=== PATIENT | female | born 1970 | race Caucasian/White ===

== ENCOUNTER 2020-04-16 20:44 | Emergency (ER) | payer MEDICAID, SELFPAY ==
--- NOTE | 2020-04-16 22:12 | ECG_ITS ---
Test Reason : CHEST PAIN/DYSPNEA Blood Pressure : / mmHG Vent. Rate : 076 BPM Atrial Rate : 076 BPM P-R Int : 148 ms QRS Dur : 084 ms QT Int : 408 ms P-R-T Axes : 073 000 -02 degrees QTc Int : 459 ms Normal sinus rhythm Normal ECG When compared with ECG of 13-OCT-2019 22:14, No significant change was found Referred By: Generic ED Physician Electronically Signed By:Justin Pena
== END 2020-04-17 00:21 | disposition left against medical advice (07) ==
PROVIDERS: Emergency Provider Emergency Medicine
DX: R07.9 Chest pain, unspecified (principal); R06.02 Shortness of breath
CPT/HCPCS: 93005; 99281; 99283

== ENCOUNTER 2020-07-13 20:16 | Emergency (ER) | payer MEDICAID, SELFPAY ==
--- NOTE | ~2020-07-13 | XR_ITS ---
EXAMINATION: XR CHEST CLINICAL INFORMATION: Shortness of breath COMPARISON: 10/13/2019 TECHNIQUE: Frontal view of the chest was obtained. FINDINGS: No significant abnormality is noted involving the heart, lungs, mediastinum, bony thorax or soft tissues. XR/XR chest 1V IMPRESSION: Unremarkable examination.
[2020-07-13 20:18] VITALS: BP 137/84; PULSE 79; RESP 20; TEMP 36.6; O2SAT 96; BMI 32.5
--- NOTE | 2020-07-13 20:41 | ED.ASTHMA ---
HPI - Asthma General Chief Complaint: Asthma Stated Complaint: asthma Time Seen by Provider: 07/13/20 20:41 Source: patient Limitations: no limitations History of Present Illness HPI Narrative: Patient history of asthma usually L3-4 attacks in a year been having asthma for last 1 month treated with tapering dose of prednisone which she already finished still having shortness of breath coughing mostly dry no fever or chills had COVID test done 2 weeks ago which was negative patient denies any exposure to any allergens, no new pet at home but she has allergies. MD complaint: asthma attack and shortness of breath Onset (ago): week(s) Severity: moderate Context: none known Associated symptoms: dry cough Asthma History: childhood onset Treatments Prior to Arrival: inhaled bronchodilator Related Data Previous Rx's Medication Instructions Recorded albuterol sulfate 2.5 mg INHALATION Q4-6H PRN #180 ml 07/13/20 codeine-guaifenesin 10 ml PO Q6-8H PRN #237 ml 07/13/20 fluticasone propionate [Flovent 2 puff INHALATION BID #12 g 07/13/20 HFA] montelukast [Singulair] 10 mg PO BEDTIME #30 tab 07/13/20 prednisone 40 mg PO DAILY #10 tab 07/13/20 Allergies Allergy/AdvReac Type Severity Reaction Status Date / Time prochlorperazine Allergy Unknown UNKNOWN Unverified 12/27/19 15:51 [From COMPAZINE] ibuprofen [From Motrin] AdvReac Mild STOMACH Unverified 12/27/19 15:51 UPSET Shellfish Allergy Mild SWELLING Uncoded 12/27/19 15:51 Review of Systems Review of Systems: Constitutional : No Weight loss, No Fever, No Chills ENT/Mouth : No sore throat, No Rhinorrhea Eyes: No Eye Pain, No Swelling Cardiovascular : No Chest Pain, no palpitations Respiratory : Dry Cough, No Sputum, + shortness of breath Gastrointestinal : no Nausea, No Vomiting, No Diarrhea, No abdominal Pain, no black stools Genitourinary : No Dysuria, No Urinary Frequency Musculoskeletal : No joint pain, No Myalgias, No Joint Swelling Skin : No Skin Lesions, No rash Neuro : No Weakness, No Numbness, No Dizziness, No Headache Psych : No Anxiety/Panic, No Depression Heme/Lymph: No Bruising, No Lymphadenopathy Endocrine : No Polyuria, No Polydipsia All other systems reviewed and are negative [facility] Past Medical History Medical History Asthma HTN (hypertension) Hypothyroid Migraine Surgical History History of appendectomy History of sleeve gastrectomy Hx of cholecystectomy Social History Social History Advance Directives: No Physical Exam Vital Signs: Vital Signs: Last Vital Signs Temp 97.8 F 07/13/20 20:18 Pulse 69 07/13/20 22:11 Resp 18 07/13/20 22:11 BP 146/81 H 07/13/20 22:11 Pulse Ox 100 07/13/20 22:11 Body Mass Index 32.5 Appearance: Alert. Oriented X3. No acute distress. Eyes: Pupils equal, round and reactive to light. ENT: Pharynx normal. Neck: Normal inspection. Neck supple. CVS: Normal heart rate and rhythm. Pulses normal. Respiratory: No respiratory distress. Frequent dry cough prolonged expiration both sides wheezing present bilateral rhonchi present bilaterally no rales or crackles. Abdomen: Soft and nontender. Bowel sounds are present, no mass palpable, no CVA tenderness Skin: Skin warm and dry. Normal skin color. Normal skin turgor. Extremities: No lower extremity edema. No calf tenderness Neuro: Oriented X 3. No motor deficit. No sensory deficit. MDM - Asthma MDM Narrative Medical decision making narrative: Patient's asthma came with increase attacks of asthma for last 1 month patient eosinophill count is elevated likely allergic induced responded to nebulizing treatment and IV Decadron will discharge patient home on prednisone Flovent nebulizing treatments at home and coffee room advised to follow up with asphalt blender patient is saturating 100% on room air Differential Diagnosis Differential diagnosis: Likely Acute asthmatic bronchitis Lab Data Attestation: I reviewed the patient's lab results. Result diagrams: 07/13/20 20:50 07/13/20 20:50 Labs: Lab Results 07/13/20 07/13/20 07/13/20 Range/Units 20:50 20:50 20:50 WBC 7.4 (4.8-10.8) X10*3/uL RBC 3.95 L (4.20-5.50) X10*6/uL Hgb 12.4 (12.0-16.0) g/dl Hct 36.2 L (37-47) % MCV 91.6 (80-98) fL MCH 31.4 (27.0-33.0) pg MCHC 34.3 (31.0-35.0) g/dl RDW 12.2 (11.0-16.0) % Plt Count 267 (160-400) X10*3/uL MPV 10.2 (9.4-12.3) fL Immature Gran % (Auto) 0.3 (0.0-0.4) % Neut % (Auto) 48.0 (45-73) % Lymph % (Auto) 32.1 (20-40) % [place] % (Auto) 11.7 H (2-11) % Eos % (Auto) 7.2 H (0-4) % Baso % (Auto) 0.7 (0-2) % Lymph # (Auto) 2.4 (1.2-4.9) X10*3/uL [place] # (Auto) 0.9 (0.1-1.2) X10*3/uL Eos # (Auto) 0.5 H (0.0-0.4) X10*3/uL Baso # (Auto) 0.1 (0.0-0.2) X10*3/uL Abs Immat Gran (auto) 0.02 (0.00-0.03) X10*3/uL Absolute Neuts (auto) 3.5 (2.0-8.3) X10*3/uL Absolute Nucleated RBC 0.000 (0.0-0.012) X10*3/uL Nucleated RBC % (auto) 0.0 (0.0-0.2) /100WBC Sodium 136 (135-145) mmol/L Potassium 4.5 (3.3-5.1) mmol/L Chloride 103 (96-108) mmol/L Carbon Dioxide 21 L (22-29) mmol/L Anion Gap 17 (12-20) BUN 16 (9-16) mg/dL Creatinine 0.82 (0.5-1.4) mg/dL Estim Creat Clear Calc 86.2 Estimated GFR > 60 Random Glucose 105 (60-115) mg/dL Calcium 9.0 (8.4-10.2) mg/dL COVID-19 (MISSAEL) Negative (Negative) COVID-19 Clin Com See Note Discharge Plan Discharge Clinical Impression: Asthma with acute exacerbation Patient Disposition: Home, Self-Care Instructions: Asthma (ED) Additional Instructions: Use nebulizing treatment every 4-6 hours as advised Medication as prescribed Follow-up with asphalt blender/PCP Prescriptions: New prednisone 20 mg tablet 40 mg PO DAILY Qty: 10 RF: 0 montelukast [Singulair] 10 mg tablet 10 mg PO BEDTIME Qty: 30 RF: 0 albuterol sulfate 2.5 mg /3 mL (0.083 %) solution for nebulization 2.5 mg inhalation Q4-6H PRN (Reason: shortness of breath or wheezing) Qty: 180 RF: 0 codeine-guaifenesin 10-100 mg/5 mL liquid 10 ml PO Q6-8H PRN (Reason: cough) Qty: 237 RF: 0 Flovent HFA 220 mcg/actuation HFA aerosol inhaler 2 puff inhalation BID Qty: 12 RF: 0 Referrals: Jayden Shaw MD [Physician] - 1 week
[2020-07-13 20:59] LABS: MANUAL DIFF FLAG NO
[2020-07-13] MEDS: Albuterol/Iprat 2.5/0.5MG 3 ML AMPUL.NEB INHALE (20:59)
[2020-07-13] MEDS: Albuterol Sulfate (0.083%) 2.5 MG/3 ML VIAL.NEB 5 MG INHALE (20:59)
[2020-07-13 21:02] LABS: Basophils Absolute Auto 0.1 X10*3/uL (0.0-0.2); Basophils Percent Auto 0.7 % (0-2); Eosinophils Absolute Auto 0.5 X10*3/uL (0.0-0.4); Eosinophils Percent Auto 7.2 % (0-4); Hematocrit 36.2 % (37-47); Hemoglobin 12.4 g/dl (12.0-16.0); Imm Gran Abs Auto 0.02 X10*3/uL (0.00-0.03); Imm Gran Pct Auto 0.3 % (0.0-0.4); Lymphocytes Absolute Auto 2.4 X10*3/uL (1.2-4.9); Lymphocytes Percent Auto 32.1 % (20-40); Mean Corpuscular HGB Conc 34.3 g/dl (31.0-35.0); Mean Corpuscular Hemoglobin 31.4 pg (27.0-33.0); Mean Corpuscular Volume 91.6 fL (80-98); Mean Platelet Volume 10.2 fL (9.4-12.3); Monocytes Absolute Auto 0.9 X10*3/uL (0.1-1.2); Monocytes Percent Auto 11.7 % (2-11); Neutrophils Absolute Auto 3.5 X10*3/uL (2.0-8.3); Platelet Count 267 X10*3/uL (160-400); Red Blood Count 3.95 X10*6/uL (4.20-5.50); Red Cell Distribution Width 12.2 % (11.0-16.0); White Blood Count 7.4 X10*3/uL (4.8-10.8)
[2020-07-13 21:03] VITALS: PULSE 88; O2SAT 97
[2020-07-13] MEDS: guaiFEN/Codeine SF 200/20/10ML 10 ML LIQUID PO (21:05)
[2020-07-13] MEDS: Magnesium Sulfate/H2O 2 GM/50 ML PIGGYBACK IV (21:05)
[2020-07-13] MEDS: 0.9 % Sodium Chloride 1,000 ML 999 ML IVCONT (21:06)
--- NOTE | 2020-07-13 21:10 | PC.NURSE ---
IV established, labs and Covid swab obtained, at bedside for eval. RT at bedside for treatment. VSS. Call maldonado within reach, continue to monitor.
[2020-07-13 21:16] LABS: COVID-19 Test Negative (Negative)
--- NOTE | 2020-07-13 21:26 | PC.NURSE ---
CXR at bedside.
[2020-07-13 21:29] LABS: Anion Gap 17 (12-20); Blood Urea Nitrogen 16 mg/dL (9-16); Carbon Dioxide 21 mmol/L (22-29); Chloride 103 mmol/L (96-108); Creatinine Clr Calc Pharmacy 86.2; Estimated Glomerular Filt Rate > 60; Glucose Random 105 mg/dL (60-115); Potassium 4.5 mmol/L (3.3-5.1); Sodium 136 mmol/L (135-145)
[2020-07-13 22:11] VITALS: BP 146/81; PULSE 69; RESP 18; O2SAT 100
== END 2020-07-13 22:48 | disposition home or self-care (01) ==
PROVIDERS: Emergency Provider Internal Medicine
DX: J45.901 Unspecified asthma with (acute) exacerbation (principal); R05 Cough; Z20.822 Contact with and (suspected) exposure to COVID-19; Z79.899 Other long term (current) drug therapy; Z98.84 Bariatric surgery status
CPT/HCPCS: 36415; 71045; 80048; 85025; 87635; 94640; 94644; 96361; 96365; 96375; 99284; J1100; J3475

== ENCOUNTER → 2020-07-15 14:44 | Outpatient (BNVA) | payer MEDICAID, SELFPAY | PROVIDERS: PCP Internal Medicine; Visit Provider Internal Medicine Pulmonary Disease | DX: J45.50 Severe persistent asthma, uncomplicated (principal); Z91.09 Other allergy status, other than to drugs and biological substances | CPT/HCPCS: 99202 ==

== ENCOUNTER → 2020-07-22 14:46 | Outpatient (BNVA) | payer MEDICAID, SELFPAY | PROVIDERS: PCP Internal Medicine; Visit Provider Surgery | DX: E66.9 Obesity, unspecified (principal); Z68.33 Body mass index [BMI] 33.0-33.9, adult; K91.2 Postsurgical malabsorption, not elsewhere classified; Z90.3 Acquired absence of stomach [part of] | CPT/HCPCS: 99202 ==

== ENCOUNTER 2020-08-04 08:49 | Outpatient (REF) | payer MEDICAID, SELFPAY ==
[2020-08-04 09:36] LABS: MANUAL DIFF FLAG NO
[2020-08-04 09:41] LABS: Basophils Percent Auto 0.5 % (0-2); Eosinophils Absolute Auto 0.2 X10*3/uL (0.0-0.4); Eosinophils Percent Auto 3.1 % (0-4); Hematocrit 39.7 % (37-47); Hemoglobin 13.6 g/dl (12.0-16.0); Imm Gran Abs Auto 0.02 X10*3/uL (0.00-0.03); Imm Gran Pct Auto 0.3 % (0.0-0.4); Lymphocytes Absolute Auto 1.4 X10*3/uL (1.2-4.9); Lymphocytes Percent Auto 24.3 % (20-40); Mean Corpuscular HGB Conc 34.3 g/dl (31.0-35.0); Mean Corpuscular Hemoglobin 32.1 pg (27.0-33.0); Mean Corpuscular Volume 93.6 fL (80-98); Mean Platelet Volume 10.5 fL (9.4-12.3); Monocytes Absolute Auto 0.6 X10*3/uL (0.1-1.2); Monocytes Percent Auto 9.8 % (2-11); Neutrophils Absolute Auto 3.5 X10*3/uL (2.0-8.3); Platelet Count 217 X10*3/uL (160-400); Red Blood Count 4.24 X10*6/uL (4.20-5.50); Red Cell Distribution Width 12.7 % (11.0-16.0); White Blood Count 5.7 X10*3/uL (4.8-10.8)
[2020-08-04 10:09] LABS: Alanine Aminotransferase 15 U/L (0-31); Albumin Level 4.6 g/dL (3.5-5.0); Alkaline Phosphatase 42 U/L (39-117); Anion Gap 15 (12-20); Aspartate Amino Transferase 16 U/L (5-31); Bilirubin Total 0.9 mg/dL (0.0-1.0); Blood Urea Nitrogen 15 mg/dL (9-16); C Reactive Protein 0.56 mg/dL (< or = 0.50); Calcium 9.9 mg/dL (8.4-10.2); Carbon Dioxide 25 mmol/L (22-29); Chloride 105 mmol/L (96-108); Cholesterol 180 mg/dL; Estimated Glomerular Filt Rate > 60; Glucose Fasting 105 mg/dL (60-99); HDL Cholesterol 47 mg/dL; Iron 137 mcg/dL (30-160); LDL Cholesterol Calculated 104 mg/dl; Percent Iron Saturation 41 % (15-50); Potassium 4.1 mmol/L (3.3-5.1); Sodium 141 mmol/L (135-145); Total Iron Binding Capacity 337 mcg/dL (228-428); Total Protein 7.4 g/dL (6.5-8.0); Triglycerides 148 mg/dL; Unsaturated Iron Binding 200 ug/dL
[2020-08-04 10:32] LABS: Thyroid Stimulating Hormone 3.89 uIU/mL (0.32-4.0); Vitamin D 25-OH Total 18.3 ng/mL (>30)
[2020-08-04 10:44] LABS: Vitamin B12 1120 pg/mL (200-900)
[2020-08-04 10:58] LABS: Estimated Average Glucose 100 mg/dL; Hemoglobin A1c % 5.1 %
[2020-08-07 13:26] LABS: Vitamin A 40 mcg/dL (38-98)
[2020-08-07 16:16] LABS: Zinc 78 mcg/dL (60-130)
[2020-08-08 06:42] LABS: Vitamin B1 <6 nmol/L (8-30)
== END 2020-08-04 08:50 | disposition home or self-care (01) ==
LOC: HO.LAB 08:49
PROVIDERS: Absent Provider Surgery; Visit Provider Internal Medicine Pulmonary Disease
DX: Z01.818 Encounter for other preprocedural examination (principal); K91.2 Postsurgical malabsorption, not elsewhere classified; Z91.09 Other allergy status, other than to drugs and biological substances; Z90.3 Acquired absence of stomach [part of]
CPT/HCPCS: 36415; 80053; 80061; 82306; 82607; 82785; 83036; 83540; 84425; 84443; 84590; 84630; 85025; 86003; 86140

== ENCOUNTER 2020-08-07 13:57 | Outpatient (REF) | payer MEDICAID, SELFPAY ==
--- NOTE | 2020-08-07 17:32 | PFT_ITS ---
Forced vital capacity; FEV1, HLD17-28, and MVV are all normal. Post bronchodilator therapy, there is no change. Total lung capacity normal. Residual volume slightly decreased. Diffusion capacity normal. CONCLUSION: Normal pulmonary function test and no evidence of obstructive or restrictive pulmonary disorder. Olvin Lawson MD MSB/MODL / [id number]
== END 2020-08-07 13:58 | disposition home or self-care (01) ==
LOC: HO.RESP 13:57
PROVIDERS: Visit Provider Internal Medicine Pulmonary Disease
DX: J45.50 Severe persistent asthma, uncomplicated (principal); Z79.899 Other long term (current) drug therapy; Z91.09 Other allergy status, other than to drugs and biological substances
CPT/HCPCS: 94060; 94727; 94729; 99212

== ENCOUNTER → 2020-08-12 15:04 | Outpatient (BNVA) | payer MEDICAID, SELFPAY | PROVIDERS: PCP Internal Medicine; Visit Provider Surgery | DX: E66.9 Obesity, unspecified (principal); Z68.34 Body mass index [BMI] 34.0-34.9, adult | CPT/HCPCS: 99212 ==

== ENCOUNTER → 2020-09-01 15:24 | Outpatient (BNVA) | payer MEDICAID, SELFPAY | PROVIDERS: PCP Internal Medicine; Visit Provider Surgery | DX: E66.9 Obesity, unspecified (principal); Z68.34 Body mass index [BMI] 34.0-34.9, adult | CPT/HCPCS: 99212 ==

== ENCOUNTER 2021-01-16 11:01 | Emergency (ER) | payer MEDICAID, SELFPAY ==
--- NOTE | ~2021-01-16 | XR_ITS ---
EXAMINATION: XR CHEST CLINICAL INFORMATION: Chest and back pain COMPARISON: None TECHNIQUE: 2 views of the chest were obtained. FINDINGS: There is questionable groundglass opacity at right cardiac border. The remainder of the lungs are clear. There is no air bronchogram, pleural reaction, or effusion. No pneumothorax or pneumomediastinum. The cardiac and hilar and mediastinal contours are unremarkable. No acute bony abnormality. XR/XR chest 2V IMPRESSION: Question of groundglass opacity at right cardiac border. No dense airspace consolidation or air bronchograms.
[2021-01-16 11:04] VITALS: BP 167/97; PULSE 75; RESP 18; TEMP 36.7; O2SAT 97; BMI 37.8
--- NOTE | 2021-01-16 11:19 | ED.CHESTPAIN ---
HPI - Chest Pain General Chief Complaint: Chest Pain Stated Complaint: CP, BACK PAIN Time Seen by Provider: 01/16/21 11:15 Source: patient and family Limitations: no limitations History of Present Illness HPI narrative: This is a 50-year-old female who complains of pain to her neck, primarily on the left side, as well as to her upper back less so to her upper anterior chest and a more localized area, which began a few days ago. The patient denies any headache. She did have a headache a few days ago. She denies any focal weakness, does feel some numbness in all 4 of her extremities. She denies any shortness of breath. She denies any abdominal pain, nausea vomiting. She denies any urinary symptoms. Related Data Home Medications Medication Instructions Recorded Confirmed levothyroxine 25 mcg capsule 25 mcg PO DAILY 07/22/20 09/01/20 propranolol 10 mg tablet 10 mg PO BID 07/22/20 09/01/20 cholecalciferol (vitamin D3) 10 10 mcg PO DAILY 08/12/20 09/01/20 mcg (400 unit) capsule vitamin A 10,000 unit capsule 10,000 unit PO DAILY 08/12/20 09/01/20 Previous Rx's Medication Instructions Recorded montelukast 10 mg tablet 10 mg PO BEDTIME #30 tab 07/13/20 (Singulair) albuterol sulfate 90 mcg/actuation 2 puff INHALATION Q4-6H PRN 30 07/15/20 aerosol inhaler Days #1 ea ipratropium 0.5 mg-albuterol 3 mg 3 ml INHALATION Q4-6H PRN 30 Days 07/15/20 (2.5 mg base)/3 mL nebulization #180 ml soln cholecalciferol (vitamin D3) 1,250 1,250 mcg PO QWEEK #4 cap 08/04/20 mcg (50,000 unit) capsule fluticasone 500 mcg-salmeterol 50 1 inh INHALATION BID 30 Days #1 ea 08/07/20 mcg/dose blistr powdr for inhalation (Wixela Inhub) thiamine HCl (vitamin B1) 100 mg 100 mg PO DAILY #30 tab 08/08/20 tablet diazepam 5 mg tablet (Valium) 5 mg PO TID PRN #15 tab 01/16/21 diazepam 5 mg tablet (Valium) 5 mg PO TID PRN #15 tab 01/16/21 Allergies Allergy/AdvReac Type Severity Reaction Status Date / Time prochlorperazine Allergy Unknown UNKNOWN Verified 09/01/20 16:19 [From COMPAZINE] ibuprofen [From Motrin] AdvReac Mild STOMACH Verified 09/01/20 16:19 UPSET Review of Systems Review of Systems: Yes all other systems are reviewed and are negative Constitutional: Constitutional: Reports as per HPI and Denies fever(s) Eyes: Eyes: Reports as per HPI and Reports no additional eye complaints ENT: Reports system reviewed and no additional complaints, except as documented, Reports as per HPI, Denies nasal congestion, Denies nasal discharge, Reports neck pain and Denies sore throat Cardiovascular: Cardiovascular: Reports as per HPI, Reports chest pain and Denies dyspnea Respiratory: Respiratory: Reports as per HPI, Denies cough and Denies dyspnea Gastrointestinal: Gastrointestinal: Reports as per HPI, Denies abdominal pain, Denies diarrhea and Denies vomiting Genitourinary: Genitourinary: Reports as per HPI, Denies hematuria, Denies urinary frequency and Denies dysuria Musculoskeletal: Musculoskeletal: Reports back pain, Reports neck pain and Reports numbness (Tingling in all 4 extremities) Integumentary/Breasts: Skin/Breast: Reports as per HPI and Denies rash Neurologic: Reports as per HPI, Denies focal weakness, Reports numbness (Tingling in all 4 extremities) and Denies Sensory deficit (Neuro) Psychiatric: Psychiatric: Reports no additional psychiatric complaints and Reports as per HPI Endocrine: Endocrine: Reports no additional endocrine complaints and Reports as per HPI Hematologic/Lymphatic: Hematologic/Lymphatic: Reports no additional hematologic/lymphatic complaints, Reports as per HPI and Reports other (No peripheral edema) [facility] Past Medical History Medical History Asthma HTN (hypertension) Hypothyroid Migraine Surgical History History of appendectomy History of repair of hiatal hernia History of sleeve gastrectomy Hx of cholecystectomy Hx of tubal ligation Family History Family History Mother No problems noted. Father Asthma Diabetes Thyroid condition Sister No problems noted. Sister Asthma Diabetes Thyroid condition Sister Asthma Diabetes Thyroid condition Cancer Brother Asthma Daughter No problems noted. Daughter Migraine Hypotension Son No problems noted. Son Asthma Kidney failure Social History Social History (Updated 09/01/20 @ 16:20 by Citlalli Luna MD) Alcohol intake: current Alcohol intake frequency: holidays/special occasions only Advance Directives: No Advance Directives Information Provided: Yes Patient : No Physical Exam Vital Signs: Vital Signs: Last Vital Signs Temp 98.6 F 01/16/21 12:19 Pulse 59 01/16/21 12:19 Resp 14 01/16/21 12:19 BP 110/66 01/16/21 12:19 Pulse Ox 97 01/16/21 12:19 Body Mass Index 37.8 Const: General: cooperative, no acute distress and alert Orientation/consciousness: patient oriented x3 HENMT: Head: Yes normal to inspection Eyes: General: appearance normal, both eyes and all related structures Eyelids: Yes eyelids normal Conjunctivae: conjunctivae normal Pupils: Equal, round and reactive pupils present Neck: Other: Tender at the muscles left side of the neck down to left upper back Neck: Yes normal visual inspection and Yes supple Chest: Chest palpation & inspection: normal inspection of the chest Resp: Effort & Inspection: normal respiratory effort Auscultation: clear to auscultation bilaterally Cardio: Rate: regular rate Rhythm: regular rhythm Heart sounds: S1 normal heart sound present, S2 normal heart sound present, no gallops, no murmurs and no rubs GI: Palpation (GI): Soft to palpation, nontender and Other GI palpation findings present (Non-distended) Auscultation: normal bowel sounds Back/Spine/Pelvis: Other: Tender hall muscles left upper back Skin: General skin exam: no rashes or lesions noted Neuro: General: patient oriented x3, no focal motor deficits and CN's II-XI intact bilaterally Cranial nerves: Yes Equal, round and reactive pupils present Cognition (Neuro): normal cognition Motor exam (neuro): 5/5 motor strength present throughout Sensory Exam: No Sensory deficit (Neuro) Extrem: General: Yes normal to inspection and Yes no pedal edema Psych: Appearance: grossly normal Affect: normal affect MDM - Chest Pain MDM Narrative Medical decision making narrative: Patient's states he believes the patient has muscular neck and back pain secondary to not sleeping on comfortable pillows at night. Patient recently changed the way she was sleeping on the pillows and he believes this is causing her pain. The patient did have significant tenderness on exam. Labs and chest x-ray unremarkable. Patient had improvement with Valium and Toradol. Lab Data Attestation: I reviewed the patient's lab results. Result diagrams: 01/16/21 11:30 01/16/21 11:30 Labs: Lab Results 01/16/21 01/16/21 01/16/21 Range/Units 11:30 11:30 11:30 WBC 6.7 (4.8-10.8) X10*3/uL RBC 4.27 (4.20-5.50) X10*6/uL Hgb 13.5 (12.0-16.0) g/dl Hct 39.6 (37-47) % MCV 92.7 (80-98) fL MCH 31.6 (27.0-33.0) pg MCHC 34.1 (31.0-35.0) g/dl RDW 12.4 (11.0-16.0) % Plt Count 239 (160-400) X10*3/uL MPV 10.3 (9.4-12.3) fL Immature Gran % (Auto) 0.1 (0.0-0.4) % Neut % (Auto) 62.8 (45-73) % Lymph % (Auto) 23.3 (20-40) % [place] % (Auto) 10.1 (2-11) % Eos % (Auto) 3.3 (0-4) % Baso % (Auto) 0.4 (0-2) % Lymph # (Auto) 1.6 (1.2-4.9) X10*3/uL [place] # (Auto) 0.7 (0.1-1.2) X10*3/uL Eos # (Auto) 0.2 (0.0-0.4) X10*3/uL Baso # (Auto) 0.0 (0.0-0.2) X10*3/uL Abs Immat Gran (auto) 0.01 (0.00-0.03) X10*3/uL Absolute Neuts (auto) 4.2 (2.0-8.3) X10*3/uL Absolute Nucleated RBC 0.000 (0.0-0.012) X10*3/uL Nucleated RBC % (auto) 0.0 (0.0-0.2) /100WBC Sodium 139 (135-145) mmol/L Potassium 4.1 (3.3-5.1) mmol/L Chloride 106 (96-108) mmol/L Carbon Dioxide 25 (22-29) mmol/L Anion Gap 12 (12-20) BUN 13 (9-16) mg/dL Creatinine 0.85 (0.5-1.4) mg/dL Estim Creat Clear Calc 88.8 Estimated GFR > 60 Random Glucose 109 (60-115) mg/dL Calcium 9.9 (8.4-10.2) mg/dL Total Bilirubin 0.6 (0.0-1.0) mg/dL AST 18 (5-31) U/L ALT 11 (0-31) U/L Alkaline Phosphatase 48 (39-117) U/L Troponin I High Sens < 3.5 (<3.5-17.0) ng/L Total Protein 7.8 (6.5-8.0) g/dL Albumin 4.8 (3.5-5.0) g/dL Urine Color Urine Appearance Urine pH (5.0-8.0) Ur Specific [place] (1.005-1.025) Urine Protein (NEG-TRACE) MG/DL Urine Glucose (UA) (NEG) MG/DL Urine Ketones (NEG) MG/DL Urine Blood (NEG) Urine Nitrite (NEG) Ur Leukocyte Esterase (NEG) Urine RBC (0) /HPF Urine WBC (0-4) /HPF Ur Squamous Epith Cells /LPF Urine Bacteria /LPF Urine Mucus /LPF 01/16/21 Range/Units 11:30 WBC (4.8-10.8) X10*3/uL RBC (4.20-5.50) X10*6/uL Hgb (12.0-16.0) g/dl Hct (37-47) % MCV (80-98) fL MCH (27.0-33.0) pg MCHC (31.0-35.0) g/dl RDW (11.0-16.0) % Plt Count (160-400) X10*3/uL MPV (9.4-12.3) fL Immature Gran % (Auto) (0.0-0.4) % Neut % (Auto) (45-73) % Lymph % (Auto) (20-40) % [place] % (Auto) (2-11) % Eos % (Auto) (0-4) % Baso % (Auto) (0-2) % Lymph # (Auto) (1.2-4.9) X10*3/uL [place] # (Auto) (0.1-1.2) X10*3/uL Eos # (Auto) (0.0-0.4) X10*3/uL Baso # (Auto) (0.0-0.2) X10*3/uL Abs Immat Gran (auto) (0.00-0.03) X10*3/uL Absolute Neuts (auto) (2.0-8.3) X10*3/uL Absolute Nucleated RBC (0.0-0.012) X10*3/uL Nucleated RBC % (auto) (0.0-0.2) /100WBC Sodium (135-145) mmol/L Potassium (3.3-5.1) mmol/L Chloride (96-108) mmol/L Carbon Dioxide (22-29) mmol/L Anion Gap (12-20) BUN (9-16) mg/dL Creatinine (0.5-1.4) mg/dL Estim Creat Clear Calc Estimated GFR Random Glucose (60-115) mg/dL Calcium (8.4-10.2) mg/dL Total Bilirubin (0.0-1.0) mg/dL AST (5-31) U/L ALT (0-31) U/L Alkaline Phosphatase (39-117) U/L Troponin I High Sens (<3.5-17.0) ng/L Total Protein (6.5-8.0) g/dL Albumin (3.5-5.0) g/dL Urine Color STRAW Urine Appearance CLEAR Urine pH 6.0 (5.0-8.0) Ur Specific [place] <= 1.005 (1.005-1.025) Urine Protein NEG (NEG-TRACE) MG/DL Urine Glucose (UA) NEG (NEG) MG/DL Urine Ketones NEG (NEG) MG/DL Urine Blood 2+ H (NEG) Urine Nitrite NEG (NEG) Ur Leukocyte Esterase NEG (NEG) Urine RBC 1-4 (0) /HPF Urine WBC 0-2 (0-4) /HPF Ur Squamous Epith Cells 1+ /LPF Urine Bacteria NONE /LPF Urine Mucus TRACE /LPF Imaging Data Chest x-ray: Radiologist's impression: IMPRESSION: Question of groundglass opacity at right cardiac border. No dense airspace consolidation or air bronchograms. Discharge Plan Discharge Clinical Impression: Musculoskeletal back pain, Neck pain, musculoskeletal Patient Disposition: Home, Self-Care Instructions: Heat Pack Application (ED), Acute Neck Pain (ED) Additional Instructions: Use a heating pad off and on. Make sure to use appropriate pillows when you sleep to assure that you are comfortable and do not develop muscle strain or spasm. Follow-up with primary care physician as needed. Use acetaminophen, and Valium as prescribed Prescriptions: New diazepam [Valium] 5 mg tablet 5 mg PO TID PRN (Reason: muscle spasm) Qty: 15 RF: 0 diazepam [Valium] 5 mg tablet 5 mg PO TID PRN (Reason: muscle spasm) Qty: 15 RF: 0 No Action cholecalciferol (vitamin D3) 1,250 mcg (50,000 unit) capsule 1,250 mcg PO QWEEK Qty: 4 RF: 1 thiamine HCl (vitamin B1) 100 mg tablet 100 mg PO DAILY Qty: 30 RF: 0 montelukast [Singulair] 10 mg tablet 10 mg PO BEDTIME Qty: 30 RF: 0 levothyroxine 25 mcg capsule 25 mcg PO DAILY RF: 0 propranolol 10 mg tablet 10 mg PO BID RF: 0 fluticasone propion-salmeterol [Wixela Inhub] 500-50 mcg/dose blister with device 1 inh inhalation BID 30 Days Qty: 1 RF: 6 vitamin A 10,000 unit capsule 10,000 unit PO DAILY RF: 0 cholecalciferol (vitamin D3) 10 mcg (400 unit) capsule 10 mcg PO DAILY RF: 0 ipratropium-albuterol 0.5 mg-3 mg(2.5 mg base)/3 mL solution for nebulization 3 ml inhalation Q4-6H PRN (Reason: wheezing) 30 Days Qty: 180 RF: 6 albuterol sulfate 90 mcg/actuation HFA aerosol inhaler 2 puff inhalation Q4-6H PRN (Reason: shortness of breath or wheezing) 30 Days Qty: 1 RF: 6 Interventions: ED Discharge Assessment Last Done: 01/16/21 13:30 Discharge Date/Time: 01/16/21 13:53
[2021-01-16] MEDS: diazePAM 5 MG TABLET 10 MG PO (11:33)
[2021-01-16] MEDS: Ketorolac Tromethamine 15 MG/ML VIAL 30 MG IVPUSH (11:33)
[2021-01-16 11:34] LABS: MANUAL DIFF FLAG NO
[2021-01-16 11:38] LABS: Appearance Urine CLEAR; Color Urine STRAW; Glucose Urine UA NEG (NEG); Leukocyte Esterase Urine NEG (NEG); Nitrite Urine NEG (NEG); Specific Gravity - Urine <= 1.005 (1.005-1.025); UACC Culture Trigger NO; Urine Blood 2+ (NEG); Urine Ketones NEG (NEG); Urine Protein NEG (NEG-TRACE)
[2021-01-16 11:39] LABS: Basophils Percent Auto 0.4 % (0-2); Eosinophils Absolute Auto 0.2 X10*3/uL (0.0-0.4); Eosinophils Percent Auto 3.3 % (0-4); Hematocrit 39.6 % (37-47); Hemoglobin 13.5 g/dl (12.0-16.0); Imm Gran Abs Auto 0.01 X10*3/uL (0.00-0.03); Imm Gran Pct Auto 0.1 % (0.0-0.4); Lymphocytes Absolute Auto 1.6 X10*3/uL (1.2-4.9); Lymphocytes Percent Auto 23.3 % (20-40); Mean Corpuscular HGB Conc 34.1 g/dl (31.0-35.0); Mean Corpuscular Hemoglobin 31.6 pg (27.0-33.0); Mean Corpuscular Volume 92.7 fL (80-98); Mean Platelet Volume 10.3 fL (9.4-12.3); Monocytes Absolute Auto 0.7 X10*3/uL (0.1-1.2); Monocytes Percent Auto 10.1 % (2-11); Neutrophils Absolute Auto 4.2 X10*3/uL (2.0-8.3); Neutrophils Percent Auto 62.8 % (45-73); Platelet Count 239 X10*3/uL (160-400); Red Blood Count 4.27 X10*6/uL (4.20-5.50); Red Cell Distribution Width 12.4 % (11.0-16.0); White Blood Count 6.7 X10*3/uL (4.8-10.8)
[2021-01-16 11:44] LABS: Squamous Epithelial Cell Urine 1+ /LPF
[2021-01-16 11:45] LABS: Mucus Urine TRACE /LPF; WBC Urine 0-2 /HPF (0-4)
[2021-01-16 11:51] LABS: Alanine Aminotransferase 11 U/L (0-31); Albumin Level 4.8 g/dL (3.5-5.0); Alkaline Phosphatase 48 U/L (39-117); Anion Gap 12 (12-20); Aspartate Amino Transferase 18 U/L (5-31); Bilirubin Total 0.6 mg/dL (0.0-1.0); Blood Urea Nitrogen 13 mg/dL (9-16); Calcium 9.9 mg/dL (8.4-10.2); Carbon Dioxide 25 mmol/L (22-29); Chloride 106 mmol/L (96-108); Creatinine Clr Calc Pharmacy 88.8; Estimated Glomerular Filt Rate > 60; Glucose Random 109 mg/dL (60-115); Potassium 4.1 mmol/L (3.3-5.1); Sodium 139 mmol/L (135-145); Total Protein 7.8 g/dL (6.5-8.0)
[2021-01-16 11:55] LABS: Troponin-I High Sensitivity < 3.5 ng/L (<3.5-17.0)
[2021-01-16 12:19] VITALS: BP 110/66; PULSE 59; RESP 14; TEMP 37; O2SAT 97
--- NOTE | 2021-01-18 08:17 | ECG_ITS ---
Test Reason : CP Blood Pressure : / mmHG Vent. Rate : 062 BPM Atrial Rate : 062 BPM P-R Int : 184 ms QRS Dur : 080 ms QT Int : 424 ms P-R-T Axes : 058 010 010 degrees QTc Int : 430 ms Normal sinus rhythm Low voltage QRS T-wave inversion in Anterior leads Abnormal ECG When compared with ECG of 16-APR-2020 20:46, No significant change was found Referred By: Leon Hummel Electronically Signed By:FAWAD LEE MD
== END 2021-01-16 13:53 | disposition home or self-care (01) ==
PROVIDERS: Emergency Provider Emergency Medicine; PCP Internal Medicine
DX: M54.2 Cervicalgia (principal); M54.9 Dorsalgia, unspecified; I10 Essential (primary) hypertension; J45.909 Unspecified asthma, uncomplicated; Z79.899 Other long term (current) drug therapy
CPT/HCPCS: 36415; 71046; 80053; 81001; 84484; 85025; 93005; 96372; 96374; 99284; J1885

== ENCOUNTER 2021-01-22 21:29 | Emergency (ER) | payer MEDICAID, SELFPAY ==
[2021-01-22 21:31] VITALS: BP 148/80; PULSE 75; RESP 18; TEMP 36.6; O2SAT 100; BMI 33.5
--- NOTE | 2021-01-22 21:39 | ED_ITS ---
HPI - Allergic Reaction General Chief complaint: Allergic Reaction Stated complaint: Allergic Reaction Time Seen by Provider: 01/22/21 21:35 Source: patient Mode of arrival: ambulatory Limitations: no limitations History of Present Illness MD complaint: allergic reaction Onset (ago): minute(s) Exposure: food (?jaden seeds) Symptoms: other (cough, swelling on inner cheeks bilaterally ) Severity: mild Treatment prior to arrival: benadryl Previous Allergic Reaction History: none Related Data Home Medications Medication Instructions Recorded Confirmed levothyroxine 25 mcg capsule 25 mcg PO DAILY 07/22/20 09/01/20 propranolol 10 mg tablet 10 mg PO BID 07/22/20 09/01/20 cholecalciferol (vitamin D3) 10 10 mcg PO DAILY 08/12/20 09/01/20 mcg (400 unit) capsule vitamin A 10,000 unit capsule 10,000 unit PO DAILY 08/12/20 09/01/20 Previous Rx's Medication Instructions Recorded montelukast 10 mg tablet 10 mg PO BEDTIME #30 tab 07/13/20 (Singulair) albuterol sulfate 90 mcg/actuation 2 puff INHALATION Q4-6H PRN 30 07/15/20 aerosol inhaler Days #1 ea ipratropium 0.5 mg-albuterol 3 mg 3 ml INHALATION Q4-6H PRN 30 Days 07/15/20 (2.5 mg base)/3 mL nebulization #180 ml soln cholecalciferol (vitamin D3) 1,250 1,250 mcg PO QWEEK #4 cap 08/04/20 mcg (50,000 unit) capsule fluticasone 500 mcg-salmeterol 50 1 inh INHALATION BID 30 Days #1 ea 08/07/20 mcg/dose blistr powdr for inhalation (Wixela Inhub) thiamine HCl (vitamin B1) 100 mg 100 mg PO DAILY #30 tab 08/08/20 tablet diazepam 5 mg tablet (Valium) 5 mg PO TID PRN #15 tab 01/16/21 diazepam 5 mg tablet (Valium) 5 mg PO TID PRN #15 tab 01/16/21 epinephrine 0.3 mg/0.3 mL 0.3 mg IM Q10M PRN #2 ea 01/22/21 injection, auto-injector prednisone 20 mg tablet 40 mg PO DAILY 3 Days #6 tab 01/22/21 Allergies Allergy/AdvReac Type Severity Reaction Status Date / Time prochlorperazine Allergy Unknown UNKNOWN Verified 09/01/20 16:19 [From COMPAZINE] ibuprofen [From Motrin] AdvReac Mild STOMACH Verified 09/01/20 16:19 UPSET Review of Systems Review of Systems: Constitutional : No Fever, No Chills ENT/Mouth : positive oral swelling, No Hoarseness, No Swallowing Difficulty Eyes: No Eye Pain, No Swelling, No Redness Cardiovascular : No Chest Pain, No SOB Respiratory : pos Cough, No Sputum, No Wheezing, No Smoke Exposure, No Dyspnea Gastrointestinal : No Nausea, No Vomiting, No Diarrhea, No abdominal Pain Genitourinary : No Dysuria, No Urinary Frequency, No Hematuria Musculoskeletal : No joint pain, No Myalgias, No Joint Swelling Skin : No Skin Lesions, no rash Neuro : No Weakness, No Numbness, No Headache Psych : No Anxiety/Panic, No Depression Heme/Lymph: No Bruising, No Lymphadenopathy Endocrine : No Polyuria, No Polydipsia All other systems reviewed and are negative [facility] Past Medical History Attestation statement: The following information was validated with the patient. Medical History Asthma HTN (hypertension) Hypothyroid Migraine Surgical History History of appendectomy History of repair of hiatal hernia History of sleeve gastrectomy Hx of cholecystectomy Hx of tubal ligation Family History Family History Mother No problems noted. Father Asthma Diabetes Thyroid condition Sister No problems noted. Sister Asthma Diabetes Thyroid condition Sister Asthma Diabetes Thyroid condition Cancer Brother Asthma Daughter No problems noted. Daughter Migraine Hypotension Son No problems noted. Son Asthma Kidney failure Social History Social History (Updated 01/22/21 @ 21:43 by Renee Salter DO) Alcohol intake: current Alcohol intake frequency: holidays/special occasions only Patient Tobacco Use Status: Never used Tobacco Advance Directives: No Advance Directives Information Provided: Yes Physical Exam Vital Signs: Vital Signs: Last Vital Signs Temp 97.9 F 01/22/21 22:58 Pulse 67 01/22/21 22:58 Resp 16 01/22/21 22:58 BP 143/46 H 01/22/21 22:58 Pulse Ox 100 01/22/21 22:58 Body Mass Index 33.5 Appearance: Alert. Oriented X3. No acute distress. Eyes: Pupils equal, round and reactive to light. ENT: inside of both cheeks swelling noted boggy, no uvula swelling Neck: Normal inspection. Neck supple. CVS: Normal heart rate and rhythm. Pulses normal. Respiratory: No respiratory distress. Breath sounds no stridor, very faint end exp wheezes mild Abdomen: Soft and non-tender. Skin: Skin warm and dry. Normal skin color. Normal skin turgor. Extremities: No lower extremity edema. No calf ttp Neuro: Oriented X 3. No motor deficit. No sensory deficit. Course Course Course Narrative: of note no progression of swelling, it has improved. stable for DC MDM - Allergic Reaction MDM Narrative Medical decision making narrative: 50 yo female with asthma here with inner cheek swelling only and some mild wheezing - patient had jaden seeds has no known prior allergies. At this time will need IV steroids, pepcid, benadryl, albuterol INH - observation dispo per results and findings. Discharge Plan Discharge Clinical Impression: Allergic reaction Patient Disposition: Home, Self-Care Instructions: General Allergic Reaction (ED) Additional Instructions: return to ED for any worsening symptoms or concerns don't eat jaden seeds Prescriptions: New prednisone 20 mg tablet 40 mg PO DAILY 3 Days Qty: 6 RF: 0 epinephrine 0.3 mg/0.3 mL auto-injector 0.3 mg IM Q10M PRN (Reason: anaphylaxis) Qty: 2 RF: 0 No Action cholecalciferol (vitamin D3) 1,250 mcg (50,000 unit) capsule 1,250 mcg PO QWEEK Qty: 4 RF: 1 thiamine HCl (vitamin B1) 100 mg tablet 100 mg PO DAILY Qty: 30 RF: 0 montelukast [Singulair] 10 mg tablet 10 mg PO BEDTIME Qty: 30 RF: 0 diazepam [Valium] 5 mg tablet 5 mg PO TID PRN (Reason: muscle spasm) Qty: 15 RF: 0 diazepam [Valium] 5 mg tablet 5 mg PO TID PRN (Reason: muscle spasm) Qty: 15 RF: 0 levothyroxine 25 mcg capsule 25 mcg PO DAILY RF: 0 propranolol 10 mg tablet 10 mg PO BID RF: 0 fluticasone propion-salmeterol [Wixela Inhub] 500-50 mcg/dose blister with device 1 inh inhalation BID 30 Days Qty: 1 RF: 6 vitamin A 10,000 unit capsule 10,000 unit PO DAILY RF: 0 cholecalciferol (vitamin D3) 10 mcg (400 unit) capsule 10 mcg PO DAILY RF: 0 ipratropium-albuterol 0.5 mg-3 mg(2.5 mg base)/3 mL solution for nebulization 3 ml inhalation Q4-6H PRN (Reason: wheezing) 30 Days Qty: 180 RF: 6 albuterol sulfate 90 mcg/actuation HFA aerosol inhaler 2 puff inhalation Q4-6H PRN (Reason: shortness of breath or wheezing) 30 Days Qty: 1 RF: 6 Stand Alone Forms: Work/School Release Interventions: ED Discharge Assessment Last Done: 01/22/21 23:15 Discharge Date/Time: 01/22/21 23:15
[2021-01-22 21:51] VITALS: BP 147/86; PULSE 69; RESP 16; O2SAT 100
[2021-01-22] MEDS: methylPREDNISolone Sod Succ 125 MG/2 ML VIAL IVPUSH (21:51)
[2021-01-22] MEDS: Albuterol Sulfate (0.083%) 2.5 MG/3 ML VIAL.NEB INHALE (21:54)
[2021-01-22 21:55] VITALS: PULSE 68; O2SAT 99
[2021-01-22] MEDS: diphenhydrAMINE HCL 50 MG/ML VIAL 25 MG IVPUSH (22:07)
[2021-01-22] MEDS: Famotidine/PF 20 MG/2 ML VIAL IVPUSH (22:10)
[2021-01-22 22:58] VITALS: BP 143/46; PULSE 67; RESP 16; TEMP 36.6; O2SAT 100
== END 2021-01-22 23:15 | disposition home or self-care (01) ==
PROVIDERS: Emergency Provider Emergency Medicine
DX: T78.1XXA Other adverse food reactions, not elsewhere classified, initial encounter (principal); R22.0 Localized swelling, mass and lump, head; X58.XXXA Exposure to other specified factors, initial encounter; J45.909 Unspecified asthma, uncomplicated; I10 Essential (primary) hypertension
CPT/HCPCS: 94640; 96374; 96375; 99284; J1200; J2930

== ENCOUNTER → 2021-03-25 09:06 | Outpatient (BNVA) | payer MEDICAID, SELFPAY | PROVIDERS: Visit Provider Internal Medicine Pulmonary Disease | DX: J45.50 Severe persistent asthma, uncomplicated (principal); Z91.09 Other allergy status, other than to drugs and biological substances | CPT/HCPCS: 99212 ==

== ENCOUNTER 2021-05-01 08:50 | Outpatient (REF) | payer MEDICAID, SELFPAY | END 2021-05-01 08:51 | disposition home or self-care (01) | LOC: HO.MDS 08:50 | PROVIDERS: Visit Provider Internal Medicine Pulmonary Disease | DX: J45.51 Severe persistent asthma with (acute) exacerbation (principal) | CPT/HCPCS: 96372; J2357 ==

== ENCOUNTER 2021-05-15 08:36 | Outpatient (REF) | payer MEDICAID, SELFPAY | END 2021-05-15 08:37 | disposition home or self-care (01) | LOC: HO.MDS 08:36 | PROVIDERS: Visit Provider Internal Medicine Pulmonary Disease | DX: J45.51 Severe persistent asthma with (acute) exacerbation (principal) | CPT/HCPCS: 96372; J2357 ==

== ENCOUNTER 2021-06-15 14:35 | Outpatient (REF) | payer MEDICAID, SELFPAY | END 2021-06-15 14:36 | disposition home or self-care (01) | LOC: HO.MDS 14:35 | PROVIDERS: Visit Provider Internal Medicine Pulmonary Disease | DX: J45.51 Severe persistent asthma with (acute) exacerbation (principal) | CPT/HCPCS: 96372; J2357 ==

== ENCOUNTER 2021-06-30 13:43 | Outpatient (REF) | payer MEDICAID, SELFPAY | END 2021-06-30 13:44 | disposition home or self-care (01) | LOC: HO.MDS 13:43 | PROVIDERS: Visit Provider Internal Medicine Pulmonary Disease | DX: J45.50 Severe persistent asthma, uncomplicated (principal) | CPT/HCPCS: 96372; J2357 ==

== ENCOUNTER 2021-07-14 12:58 | Outpatient (REF) | payer MEDICAID, SELFPAY | END 2021-07-14 12:59 | disposition home or self-care (01) | LOC: HO.MDS 12:58 | PROVIDERS: Visit Provider Internal Medicine Pulmonary Disease | DX: J45.50 Severe persistent asthma, uncomplicated (principal) | CPT/HCPCS: 96372; J2357 ==

== ENCOUNTER 2021-07-28 14:08 | Outpatient (REF) | payer MEDICAID, SELFPAY | END 2021-07-28 14:09 | disposition home or self-care (01) | LOC: HO.MDS 14:08 | PROVIDERS: Visit Provider Internal Medicine Pulmonary Disease | DX: J45.51 Severe persistent asthma with (acute) exacerbation (principal) | CPT/HCPCS: 96372; J2357 ==

== ENCOUNTER 2021-08-11 09:30 | Outpatient (REF) | payer MEDICAID, SELFPAY | END 2021-08-11 09:31 | disposition home or self-care (01) | LOC: HO.MDS 09:30 | PROVIDERS: Visit Provider Internal Medicine Pulmonary Disease | DX: J45.50 Severe persistent asthma, uncomplicated (principal) | CPT/HCPCS: 96372; J2357 ==

== ENCOUNTER 2021-09-01 11:18 | Outpatient (REF) | payer MEDICAID, SELFPAY | END 2021-09-01 11:19 | disposition home or self-care (01) | LOC: HO.MDS 11:18 | PROVIDERS: Visit Provider Internal Medicine Pulmonary Disease | DX: J45.50 Severe persistent asthma, uncomplicated (principal) | CPT/HCPCS: 96372; J2357 ==

== ENCOUNTER 2021-09-15 10:24 | Outpatient (REF) | payer MEDICAID, SELFPAY | END 2021-09-15 10:25 | disposition home or self-care (01) | LOC: HO.MDS 10:24 | PROVIDERS: Visit Provider Internal Medicine Pulmonary Disease | DX: J45.50 Severe persistent asthma, uncomplicated (principal) | CPT/HCPCS: 96372; J2357 ==

== ENCOUNTER 2021-10-05 13:58 | Outpatient (REF) | payer MEDICAID, SELFPAY | END 2021-10-05 13:59 | disposition home or self-care (01) | LOC: HO.MDS 13:58 | PROVIDERS: Visit Provider Internal Medicine Pulmonary Disease | DX: J45.50 Severe persistent asthma, uncomplicated (principal) | CPT/HCPCS: 96372; J2357 ==

== ENCOUNTER 2021-10-14 06:41 | Emergency (ER) | payer MEDICAID, SELFPAY ==
--- NOTE | ~2021-10-14 | XR_ITS ---
EXAMINATION: XR CERVICAL SPINE CLINICAL INFORMATION: Neck pain COMPARISON: None TECHNIQUE: 3 views of the cervical spine were obtained. FINDINGS: Prevertebral soft tissues are normal. There is minor anterior spurring in the mid C-spine but no fracture or destructive process. Lateral masses of C1 and odontoid intact. XR/XR cervical spine 3V IMPRESSION: Mild degenerative change. No acute findings.
[2021-10-14 06:57] VITALS: BP 161/93; PULSE 76; RESP 18; TEMP 36.5; O2SAT 98; BMI 32.9
--- NOTE | 2021-10-14 07:52 | ED_ITS ---
HPI - General Adult General Chief complaint: General Medical Stated complaint: L side pain Time Seen by Provider: 10/14/21 07:52 Source: patient Mode of arrival: ambulatory Limitations: no limitations History of Present Illness HPI narrative: Patient with history of arthritis chronic neck pain comes here for increased pain on the lower part of the neck and all over to the left side of the body patient was seen by her PCP been taking Soma and refer to pain clinic no paresthesias no motor weakness no recent injury patient been here before for similar complaints Related Data Home Medications Medication Instructions Recorded Confirmed levothyroxine 25 mcg capsule 25 mcg PO DAILY 07/22/20 09/01/20 propranolol 10 mg tablet 10 mg PO BID 07/22/20 09/01/20 cholecalciferol (vitamin D3) 10 10 mcg PO DAILY 08/12/20 09/01/20 mcg (400 unit) capsule vitamin A 10,000 unit capsule 10,000 unit PO DAILY 08/12/20 09/01/20 Previous Rx's Medication Instructions Recorded montelukast 10 mg tablet 10 mg PO BEDTIME #30 tabs 07/13/20 (Singulair) albuterol sulfate 90 mcg/actuation 2 puff inhalation Q4-6H PRN 07/15/20 aerosol inhaler shortness of breath or wheezing 30 days #1 ea cholecalciferol (vitamin D3) 1,250 1,250 mcg PO QWEEK #4 caps 08/04/20 mcg (50,000 unit) capsule thiamine HCl (vitamin B1) 100 mg 100 mg PO DAILY #30 tabs 08/08/20 tablet diazepam 5 mg tablet (Valium) 5 mg PO TID PRN muscle spasm #15 01/16/21 tabs diazepam 5 mg tablet (Valium) 5 mg PO TID PRN muscle spasm #15 01/16/21 tabs epinephrine 0.3 mg/0.3 mL 0.3 mg (0.3 mL) IM Q10M PRN 01/22/21 injection, auto-injector anaphylaxis #2 ea fluticasone 500 mcg-salmeterol 50 1 inh inhalation BID 30 days #1 ea 02/18/21 mcg/dose blistr powdr for inhalation (Wixela Inhub) ipratropium 0.5 mg-albuterol 3 mg 3 ml inhalation Q4-6H PRN wheezing 02/18/21 (2.5 mg base)/3 mL nebulization 30 days #180 mL soln prednisone 10 mg tablet See Rx Instructions PO DAILY 20 03/25/21 days #50 tabs omalizumab 150 mg subcutaneous 225 mg subcut Q2W 28 days #3 ea 04/07/21 solution (Xolair) tramadol 50 mg tablet 50 mg PO Q6H PRN pain #20 tabs 10/14/21 Allergies Allergy/AdvReac Type Severity Reaction Status Date / Time prochlorperazine Allergy Unknown UNKNOWN Verified 03/25/21 09:08 [From COMPAZINE] ibuprofen [From Motrin] AdvReac Mild STOMACH Verified 03/25/21 09:08 UPSET Review of Systems Review of Systems: Yes all other systems are reviewed and are negative [facility] Past Medical History Medical History Asthma HTN (hypertension) Hypothyroid Migraine Surgical History History of appendectomy History of repair of hiatal hernia History of sleeve gastrectomy Hx of cholecystectomy Hx of tubal ligation Family History Family History Mother No problems noted. Father Asthma Diabetes Thyroid condition Sister No problems noted. Sister Asthma Diabetes Thyroid condition Sister Asthma Diabetes Thyroid condition Cancer Brother Asthma Daughter No problems noted. Daughter Migraine Hypotension Son No problems noted. Son Asthma Kidney failure Social History Social History Alcohol intake: current Alcohol intake frequency: holidays/special occasions only Patient Tobacco Use Status: Never used Tobacco Advance Directives: No Advance Directives Information Provided: Yes Physical Exam ED Vital Signs: Vital Signs - 24 hr 10/14/21 06:57 Temperature 97.7 F Pulse Rate 76 Respiratory Rate 18 Blood Pressure 161/93 H Pulse Oximetry 98 Oxygen Delivery Method Room Air BMI result Body Mass Index 32.9 Appearance: Alert. Oriented X3. No acute distress. ENT: Pharynx normal. Oral Mucosa moist Neck: Normal inspection. Neck supple. No midline tenderness diffuse left-sided neck muscle spasm CVS: Normal heart rate and rhythm. Pulses normal. Respiratory: No respiratory distress. Equal air entry bilateral, no wheezing/rales/rhonchi Abdomen: Soft and nontender. Bowel sounds are present, Skin: Skin warm and dry. Normal skin color. Normal skin turgor. Extremities: No lower extremity edema. No calf tenderness no joint swelling Neuro: Oriented X 3. No motor deficit. No sensory deficit. Medical Decision Making MDM Narrative Medical decision making narrative: Patient's cervical spine x-rays showed mild degenerative changes no acute findings patient chronic pain advised to follow-up with PCP Discharge Plan Discharge Clinical Impression: Arthralgia Patient Disposition: Home, Self-Care Instructions: Arthralgia (ED) Additional Instructions: Take pain medication as prescribed Follow with PCP as scheduled Prescriptions: New tramadol 50 mg tablet 50 mg PO Q6H PRN (Reason: pain) Qty: 20 0RF No Action cholecalciferol (vitamin D3) 1,250 mcg (50,000 unit) capsule 1,250 mcg PO QWEEK Qty: 4 1RF thiamine HCl (vitamin B1) 100 mg tablet 100 mg PO DAILY Qty: 30 0RF ipratropium-albuterol 0.5 mg-3 mg(2.5 mg base)/3 mL solution for nebulization 3 ml inhalation Q4-6H PRN (Reason: wheezing) 30 Days Qty: 180 6RF fluticasone propion-salmeterol [Wixela Inhub] 500-50 mcg/dose blister with device 1 inh inhalation BID 30 Days Qty: 1 6RF Xolair 150 mg recon soln 225 mg subcut Q2W 28 Days Qty: 3 12RF montelukast [Singulair] 10 mg tablet 10 mg PO BEDTIME Qty: 30 0RF diazepam [Valium] 5 mg tablet 5 mg PO TID PRN (Reason: muscle spasm) Qty: 15 0RF diazepam [Valium] 5 mg tablet 5 mg PO TID PRN (Reason: muscle spasm) Qty: 15 0RF epinephrine 0.3 mg/0.3 mL auto-injector 0.3 mg IM Q10M PRN (Reason: anaphylaxis) Qty: 2 0RF Rx Instructions: for 2 doses levothyroxine 25 mcg capsule 25 mcg PO DAILY propranolol 10 mg tablet 10 mg PO BID vitamin A 10,000 unit capsule 10,000 unit PO DAILY cholecalciferol (vitamin D3) 10 mcg (400 unit) capsule 10 mcg PO DAILY albuterol sulfate 90 mcg/actuation HFA aerosol inhaler 2 puff inhalation Q4-6H PRN (Reason: shortness of breath or wheezing) 30 Days Qty: 1 6RF prednisone 10 mg tablet See Rx Instructions PO DAILY 20 Days Qty: 50 0RF Rx Instructions: Take 4 tabs daily for 5 days, then go down by 1 tab every 5 days PO daily; Interventions: ED Discharge Assessment Last Done: 10/14/21 10:22 Discharge Date/Time: 10/14/21 10:23
[2021-10-14] MEDS: predniSONE 20 MG TABLET 40 MG PO (08:34)
[2021-10-14] MEDS: traMADoL HCL 50 MG TABLET PO (08:34)
[2021-10-14] MEDS: Ketorolac Tromethamine 60 MG/2 ML VIAL IM (08:35)
== END 2021-10-14 10:23 | disposition home or self-care (01) ==
PROVIDERS: Emergency Provider Internal Medicine
DX: M19.09 Primary osteoarthritis, other specified site (principal); M54.2 Cervicalgia; I10 Essential (primary) hypertension
CPT/HCPCS: 72040; 96372; 99283; 99284; J1885

== ENCOUNTER 2021-10-15 02:28 | Emergency (ER) | payer MEDICAID, SELFPAY ==
--- NOTE | ~2021-10-15 | XR_ITS ---
EXAMINATION: XR HIP, LEFT WITH PELVIS XR KNEE, LEFT CLINICAL INFORMATION: Pain COMPARISON: 10/21/2014 TECHNIQUE: Frontal view of the pelvis with 2 views of the left hip. 4 views of the left knee. FINDINGS: Pelvis/left hip: No fracture or dislocation. The hips are well aligned. Small osteophytes are present at both hips. The pelvic rim is intact. The sacroiliac joints and pubic symphysis are intact. IUD in place. Left knee: No fracture or subluxation. Compartmental joint spaces are maintained. No joint effusion. XR/XR knee LT 2V IMPRESSION: No acute abnormality of the pelvis/left hip or left knee. Mild degenerative changes of the hips.
--- NOTE | ~2021-10-15 | XR_ITS ---
EXAMINATION: XR HIP, LEFT WITH PELVIS XR KNEE, LEFT CLINICAL INFORMATION: Pain COMPARISON: 10/21/2014 TECHNIQUE: Frontal view of the pelvis with 2 views of the left hip. 4 views of the left knee. FINDINGS: Pelvis/left hip: No fracture or dislocation. The hips are well aligned. Small osteophytes are present at both hips. The pelvic rim is intact. The sacroiliac joints and pubic symphysis are intact. IUD in place. Left knee: No fracture or subluxation. Compartmental joint spaces are maintained. No joint effusion. XR/XR hip LT w PEL1V IMPRESSION: No acute abnormality of the pelvis/left hip or left knee. Mild degenerative changes of the hips.
[2021-10-15 02:38] VITALS: BP 153/91; PULSE 70; RESP 18; O2SAT 99; BMI 31.2
--- NOTE | 2021-10-15 03:25 | ED_ITS ---
HPI - Extremity Injury (Lower) General Chief Complaint: Extremity Injury, Lower Stated Complaint: L side pain Time Seen by Provider: 10/15/21 03:11 Source: patient Mode of arrival: ambulatory Limitations: no limitations History of Present Illness HPI Narrative: Patient comes to the emergency room complaining of left-sided hip pain and left knee pain. Patient states that she has been taking the medication that she was prescribed earlier today for pain, but is not providing any relief. Patient was seen here today earlier for chronic neck pain. Cervical x-rays were negative. Patient denies urinary/fecal incontinence/distension. Patient states that she is able to walk, but can do so limping. Patient states that she has been told that she has arthritis in the right side of her hip, however now the left is hurting. Patient denies any trauma Related Data Home Medications Medication Instructions Recorded Confirmed levothyroxine 25 mcg capsule 25 mcg PO DAILY 07/22/20 09/01/20 propranolol 10 mg tablet 10 mg PO BID 07/22/20 09/01/20 cholecalciferol (vitamin D3) 10 10 mcg PO DAILY 08/12/20 09/01/20 mcg (400 unit) capsule vitamin A 10,000 unit capsule 10,000 unit PO DAILY 08/12/20 09/01/20 Previous Rx's Medication Instructions Recorded montelukast 10 mg tablet 10 mg PO BEDTIME #30 tabs 07/13/20 (Singulair) albuterol sulfate 90 mcg/actuation 2 puff inhalation Q4-6H PRN 07/15/20 aerosol inhaler shortness of breath or wheezing 30 days #1 ea cholecalciferol (vitamin D3) 1,250 1,250 mcg PO QWEEK #4 caps 08/04/20 mcg (50,000 unit) capsule thiamine HCl (vitamin B1) 100 mg 100 mg PO DAILY #30 tabs 08/08/20 tablet diazepam 5 mg tablet (Valium) 5 mg PO TID PRN muscle spasm #15 01/16/21 tabs diazepam 5 mg tablet (Valium) 5 mg PO TID PRN muscle spasm #15 01/16/21 tabs epinephrine 0.3 mg/0.3 mL 0.3 mg (0.3 mL) IM Q10M PRN 01/22/21 injection, auto-injector anaphylaxis #2 ea fluticasone 500 mcg-salmeterol 50 1 inh inhalation BID 30 days #1 ea 02/18/21 mcg/dose blistr powdr for inhalation (Wixela Inhub) ipratropium 0.5 mg-albuterol 3 mg 3 ml inhalation Q4-6H PRN wheezing 02/18/21 (2.5 mg base)/3 mL nebulization 30 days #180 mL soln prednisone 10 mg tablet See Rx Instructions PO DAILY 20 03/25/21 days #50 tabs omalizumab 150 mg subcutaneous 225 mg subcut Q2W 28 days #3 ea 04/07/21 solution (Xolair) tramadol 50 mg tablet 50 mg PO Q6H PRN pain #20 tabs 10/14/21 acetaminophen 500 mg capsule 500 mg PO QID PRN pain #20 caps 10/15/21 Allergies Allergy/AdvReac Type Severity Reaction Status Date / Time prochlorperazine Allergy Unknown UNKNOWN Verified 03/25/21 09:08 [From COMPAZINE] ibuprofen [From Motrin] AdvReac Mild STOMACH Verified 03/25/21 09:08 UPSET Review of Systems Review of Systems: Constitutional : No Weight loss, No Fever, No Chills, No Night Sweats, No Fatigue, No Malaise ENT/Mouth : No Hearing loss, No Ear Pain, No Nasal Congestion, No Sinus Pain, No Hoarseness, No sore throat, No Rhinorrhea, No Swallowing Difficulty Eyes: No Eye Pain, No Swelling, No Redness, No Foreign Body, No Discharge, No Vision Changes Cardiovascular : No Chest Pain, No SOB, No Dyspnea on Exertion, No Orthopnea, No Edema, No Palpitations Respiratory : No Cough, No Sputum, No Wheezing, No Smoke Exposure, No Dyspnea Gastrointestinal : No Nausea, No Vomiting, No Diarrhea, No Constipation, No abdominal Pain, No Hematochezia, No Melena Genitourinary : no irregular bleeding, No Dysuria, No Urinary Frequency, No Hematuria, No Urinary Incontinence, No Urgency, No Flank Pain, No Urinary Flow Changes, No Hesitancy Musculoskeletal : Complaining of chronic right-sided hip pain, complaining of new onset left hip pain and left knee pain Skin : No Skin Lesions, No rash Neuro : No Weakness, No Numbness, No Paresthesias, No Loss of Consciousness, No Dizziness, No Headache Psych : No Anxiety/Panic, No Depression, No SI/HI/AH/VH, No Social Issues, Heme/Lymph: No Bruising, No Bleeding,No Lymphadenopathy Endocrine : No Polyuria, No Polydipsia, No Temperature Intolerance [facility] Past Medical History Medical History Asthma HTN (hypertension) Hypothyroid Migraine Surgical History History of appendectomy History of repair of hiatal hernia History of sleeve gastrectomy Hx of cholecystectomy Hx of tubal ligation Family History Family History Mother No problems noted. Father Asthma Diabetes Thyroid condition Sister No problems noted. Sister Asthma Diabetes Thyroid condition Sister Asthma Diabetes Thyroid condition Cancer Brother Asthma Daughter No problems noted. Daughter Migraine Hypotension Son No problems noted. Son Asthma Kidney failure Social History Social History Alcohol intake: current Alcohol intake frequency: holidays/special occasions only Patient Tobacco Use Status: Never used Tobacco Advance Directives: No Advance Directives Information Provided: Yes Physical Exam Vital Signs: Vital Signs: Last Vital Signs Pulse 70 10/15/21 02:38 Resp 18 10/15/21 02:38 BP 153/91 H 10/15/21 02:38 Pulse Ox 99 10/15/21 02:38 O2 Del Method 10/15/21 02:38 BMI result Body Mass Index 31.2 Const: Other: Appearance: Alert. Oriented X3. No acute distress. Eyes: Pupils equal, round and reactive to light. ENT: Pharynx normal. Neck: Normal inspection. Neck supple. No lymph nodes noted. No crepitus CVS: Normal heart rate and rhythm. Pulses normal. Normal S1 and S2 Respiratory: No respiratory distress. Breath sounds normal. No Wheezing. No rales Abdomen: Soft and nontender. No rigidity. No distention. Skin: Skin warm and dry. Normal skin color. Normal skin turgor. Extremities: No lower extremity edema patient is able to walk, limping, pain to palpation with with hip flexion and extension, and with knee flexion and extension both on the left side Neuro: Oriented X 3. No motor deficit. No sensory deficit. Moving all extremities. No slurred speech. CN 2 through 12 grossly intact Psych: calm, cooperative, normal affect Course Course Course Narrative: X-rays pending. Patient was given IM morphine and Decadron. Patient was giving earlier this morning by my colleague a prescription for tramadol. Patient should have enough medication. MDM - Extremity Injury (Lower) Imaging Data Hip and knee x-ray on left side: Radiologist's impression: FINDINGS: Pelvis/left hip: No fracture or dislocation. The hips are well aligned. Small osteophytes are present at both hips. The pelvic rim is intact. The sacroiliac joints and pubic symphysis are intact. IUD in place. Left knee: No fracture or subluxation. Compartmental joint spaces are maintained. No joint effusion.? XR/XR knee LT 2V IMPRESSION: No acute abnormality of the pelvis/left hip or left knee. Mild degenerative changes of the hips.? Discharge Plan Discharge Clinical Impression: Chronic arthritis Patient Disposition: Home, Self-Care Instructions: Arthritis (ED) Additional Instructions: You were giving a prescription for tramadol earlier today. If you have breakthrough pain, you may use Tylenol. Please follow-up with your primary care physician tomorrow. If you have any worsening or new symptoms, please return to the emergency room or call 911 Prescriptions: New acetaminophen 500 mg capsule 500 mg PO QID PRN (Reason: pain) Qty: 20 0RF No Action cholecalciferol (vitamin D3) 1,250 mcg (50,000 unit) capsule 1,250 mcg PO QWEEK Qty: 4 1RF thiamine HCl (vitamin B1) 100 mg tablet 100 mg PO DAILY Qty: 30 0RF ipratropium-albuterol 0.5 mg-3 mg(2.5 mg base)/3 mL solution for nebulization 3 ml inhalation Q4-6H PRN (Reason: wheezing) 30 Days Qty: 180 6RF fluticasone propion-salmeterol [Wixela Inhub] 500-50 mcg/dose blister with device 1 inh inhalation BID 30 Days Qty: 1 6RF Xolair 150 mg recon soln 225 mg subcut Q2W 28 Days Qty: 3 12RF montelukast [Singulair] 10 mg tablet 10 mg PO BEDTIME Qty: 30 0RF diazepam [Valium] 5 mg tablet 5 mg PO TID PRN (Reason: muscle spasm) Qty: 15 0RF diazepam [Valium] 5 mg tablet 5 mg PO TID PRN (Reason: muscle spasm) Qty: 15 0RF tramadol 50 mg tablet 50 mg PO Q6H PRN (Reason: pain) Qty: 20 0RF epinephrine 0.3 mg/0.3 mL auto-injector 0.3 mg IM Q10M PRN (Reason: anaphylaxis) Qty: 2 0RF Rx Instructions: for 2 doses levothyroxine 25 mcg capsule 25 mcg PO DAILY propranolol 10 mg tablet 10 mg PO BID vitamin A 10,000 unit capsule 10,000 unit PO DAILY cholecalciferol (vitamin D3) 10 mcg (400 unit) capsule 10 mcg PO DAILY albuterol sulfate 90 mcg/actuation HFA aerosol inhaler 2 puff inhalation Q4-6H PRN (Reason: shortness of breath or wheezing) 30 Days Qty: 1 6RF prednisone 10 mg tablet See Rx Instructions PO DAILY 20 Days Qty: 50 0RF Rx Instructions: Take 4 tabs daily for 5 days, then go down by 1 tab every 5 days PO daily;
[2021-10-15] MEDS: dexAMETHasone sod phosphate 4 MG/ML VIAL IM (03:40)
[2021-10-15] MEDS: Morphine Sulfate 4 MG/ML CARTRIDGE IM (03:40)
== END 2021-10-15 04:13 | disposition home or self-care (01) ==
PROVIDERS: Emergency Provider Emergency Medicine
DX: M17.12 Unilateral primary osteoarthritis, left knee (principal); M16.12 Unilateral primary osteoarthritis, left hip; Z79.899 Other long term (current) drug therapy
CPT/HCPCS: 73502; 73560; 96372; 99282; 99284; J1100; J2270

== ENCOUNTER 2021-10-27 05:01 | Emergency (ER) | payer MEDICAID, SELFPAY ==
--- NOTE | ~2021-10-27 | XR_ITS ---
EXAMINATION: XR CHEST CLINICAL INFORMATION: Chest pain COMPARISON: 01/16/2021 TECHNIQUE: 2 views of the chest were obtained. FINDINGS: The lungs are clear with no focal consolidation. No evidence of pneumothorax, pulmonary edema, or pleural effusions. The cardiomediastinal silhouette is unremarkable. No acute osseous findings. XR/XR chest 2V IMPRESSION: No acute cardiopulmonary findings.
--- NOTE | 2021-10-27 05:10 | ECG_ITS ---
Test Reason : CHEST PAIN Blood Pressure : / mmHG Vent. Rate : 087 BPM Atrial Rate : 087 BPM P-R Int : 168 ms QRS Dur : 080 ms QT Int : 378 ms P-R-T Axes : 045 014 011 degrees QTc Int : 454 ms Normal sinus rhythm Nonspecific ST-T changes Abnormal ECG When compared with ECG of 16-JAN-2021 11:33, nonspecific ST-T changes noted. Referred By: Renee Salter Electronically Signed By:Justin Pena
[2021-10-27 05:38] VITALS: BP 142/91; PULSE 95; RESP 24; TEMP 36.8; O2SAT 99; BMI 31.2
[2021-10-27 05:43] LABS: MANUAL DIFF FLAG NO
[2021-10-27 05:44] LABS: Basophils Percent Auto 0.3 % (0-2); Eosinophils Absolute Auto 0.3 X10*3/uL (0.0-0.4); Eosinophils Percent Auto 2.9 % (0-4); Hemoglobin 12.3 g/dl (12.0-16.0); Imm Gran Abs Auto 0.03 X10*3/uL (0.00-0.03); Imm Gran Pct Auto 0.3 % (0.0-0.4); Lymphocytes Absolute Auto 1.7 X10*3/uL (1.2-4.9); Lymphocytes Percent Auto 17.1 % (20-40); Mean Corpuscular HGB Conc 34.2 g/dl (31.0-35.0); Mean Corpuscular Hemoglobin 31.1 pg (27.0-33.0); Mean Corpuscular Volume 91.1 fL (80.0-98.0); Mean Platelet Volume 10.1 fL (9.4-12.3); Monocytes Absolute Auto 0.8 X10*3/uL (0.1-1.2); Monocytes Percent Auto 7.6 % (2-11); Neutrophils Percent Auto 71.8 % (45-73); Platelet Count 242 X10*3/uL (160-400); Red Blood Count 3.95 X10*6/uL (4.20-5.50); Red Cell Distribution Width 12.7 % (11.0-16.0); White Blood Count 9.8 X10*3/uL (4.8-10.8)
[2021-10-27 05:58] LABS: COVID-19 Test Negative (Negative)
[2021-10-27 06:01] LABS: Alanine Aminotransferase 19 U/L (0-31); Albumin Level 4.4 g/dL (3.5-5.0); Alkaline Phosphatase 50 U/L (39-117); Anion Gap 13 (12-20); Aspartate Amino Transferase 16 U/L (5-31); Bilirubin Total 0.6 mg/dL (0.0-1.0); Blood Urea Nitrogen 11 mg/dL (9-16); Carbon Dioxide 24 mmol/L (22-29); Chloride 104 mmol/L (96-108); Creatinine Clr Calc Pharmacy 83.5; Estimated Glomerular Filt Rate > 60; Glucose Random 122 mg/dL (60-115); Sodium 137 mmol/L (135-145); Total Protein 7.3 g/dL (6.5-8.0)
[2021-10-27 06:07] LABS: Troponin-I High Sensitivity < 3.5 ng/L (<3.5-17.0)
--- NOTE | 2021-10-27 10:30 | ED.CHESTPAIN ---
HPI - Chest Pain General Chief Complaint: Upper Respiratory Symptoms Stated Complaint: chest pain, sob, throat closing, ear pain Time Seen by Provider: 10/27/21 10:26 Source: patient and old records reviewed Mode of arrival: ambulatory Limitations: no limitations History of Present Illness HPI narrative: 51 yo female with hx of obesity, asthma, COVID 19 6 months ago that did not require hospitalization, comes in with c/o 2 days of sore throat, ear pain, laryngitis, cough/chest wall pain. She denies sick contacts or travel. Takes all medications MD complaint: chest pain (cough, sore throat, ear pain) Pertinent past history: asthma Onset (ago): day(s) (2) Timing of current episode: constant Prior episodes: Yes Onset: during rest Pain location: substernal Pain radiation: none Severity: moderate Quality: tightness Relieving factors: nothing Exacerbating factors: other (coughing) Context: other (asthma hx of COVID) Associated symptoms: cough and other (sore throat, ear pain) Treatment prior to arrival: none Related Data Home Medications Medication Instructions Recorded Confirmed levothyroxine 25 mcg capsule 25 mcg PO DAILY 07/22/20 09/01/20 propranolol 10 mg tablet 10 mg PO BID 07/22/20 09/01/20 cholecalciferol (vitamin D3) 10 10 mcg PO DAILY 08/12/20 09/01/20 mcg (400 unit) capsule vitamin A 10,000 unit capsule 10,000 unit PO DAILY 08/12/20 09/01/20 Previous Rx's Medication Instructions Recorded montelukast 10 mg tablet 10 mg PO BEDTIME #30 tabs 07/13/20 (Singulair) albuterol sulfate 90 mcg/actuation 2 puff inhalation Q4-6H PRN 07/15/20 aerosol inhaler shortness of breath or wheezing 30 days #1 ea cholecalciferol (vitamin D3) 1,250 1,250 mcg PO QWEEK #4 caps 08/04/20 mcg (50,000 unit) capsule thiamine HCl (vitamin B1) 100 mg 100 mg PO DAILY #30 tabs 08/08/20 tablet diazepam 5 mg tablet (Valium) 5 mg PO TID PRN muscle spasm #15 01/16/21 tabs diazepam 5 mg tablet (Valium) 5 mg PO TID PRN muscle spasm #15 01/16/21 tabs epinephrine 0.3 mg/0.3 mL 0.3 mg (0.3 mL) IM Q10M PRN 01/22/21 injection, auto-injector anaphylaxis #2 ea fluticasone 500 mcg-salmeterol 50 1 inh inhalation BID 30 days #1 ea 02/18/21 mcg/dose blistr powdr for inhalation (Wixela Inhub) ipratropium 0.5 mg-albuterol 3 mg 3 ml inhalation Q4-6H PRN wheezing 02/18/21 (2.5 mg base)/3 mL nebulization 30 days #180 mL soln prednisone 10 mg tablet See Rx Instructions PO DAILY 20 03/25/21 days #50 tabs omalizumab 150 mg subcutaneous 225 mg subcut Q2W 28 days #3 ea 04/07/21 solution (Xolair) tramadol 50 mg tablet 50 mg PO Q6H PRN pain #20 tabs 10/14/21 acetaminophen 500 mg capsule 500 mg PO QID PRN pain #20 caps 10/15/21 azithromycin 250 mg tablet See Rx Instructions PO .COMPLEX #6 10/27/21 tabs benzonatate 100 mg capsule 100 mg PO TID PRN cough #14 caps 10/27/21 hydrocodone-homatropine 5 mg-1.5 5 ml PO Q6H PRN cough #60 mL 10/27/21 mg/5 mL (5 mL) oral syrup Allergies Allergy/AdvReac Type Severity Reaction Status Date / Time prochlorperazine Allergy Unknown UNKNOWN Verified 03/25/21 09:08 [From COMPAZINE] ibuprofen [From Motrin] AdvReac Mild STOMACH Verified 03/25/21 09:08 UPSET Review of Systems Review of Systems: Constitutional : No Weight loss, No Fever, pos Chills ENT/Mouth : pos sore throat, pos Rhinorrhea, pos ear pain Eyes: No Eye Pain, No Swelling Cardiovascular : pos Chest Pain, pos SOB, no Dyspnea on Exertion, No Orthopnea, No Edema, No Palpitations Respiratory : pos Cough, No Sputum Gastrointestinal : pos Nausea, No Vomiting, No Diarrhea, No abdominal Pain, No Hematochezia, No Melena Genitourinary : No Dysuria, No Urinary Frequency Musculoskeletal : No joint pain, No Myalgias, No Joint Swelling Skin : No Skin Lesions, No rash Neuro : pos Weakness, No Numbness, No Dizziness, No Headache Psych : No Anxiety/Panic, No Depression Heme/Lymph: No Bruising, No Lymphadenopathy Endocrine : No Polyuria, No Polydipsia All other systems reviewed and are negative ON LICENSE OF [facility] Past Medical History Attestation statement: The following information was validated with the patient. Medical History Asthma COVID-19 HTN (hypertension) Hypothyroid Migraine Surgical History History of appendectomy History of repair of hiatal hernia History of sleeve gastrectomy Hx of cholecystectomy Hx of tubal ligation Family History Family History Mother No problems noted. Father Asthma Diabetes Thyroid condition Sister No problems noted. Sister Asthma Diabetes Thyroid condition Sister Asthma Diabetes Thyroid condition Cancer Brother Asthma Daughter No problems noted. Daughter Migraine Hypotension Son No problems noted. Son Asthma Kidney failure Social History Social History Alcohol intake: current Alcohol intake frequency: holidays/special occasions only Patient Tobacco Use Status: Never used Tobacco Advance Directives: No Advance Directives Information Provided: Yes Physical Exam Vital Signs: Vital Signs: Last Vital Signs Temp 98.3 F 10/27/21 10:35 Pulse 80 10/27/21 10:35 Resp 20 10/27/21 10:35 BP 128/76 10/27/21 10:35 Pulse Ox 97 10/27/21 10:35 O2 Del Method 10/27/21 10:35 BMI result Body Mass Index 31.2 Appearance: Alert. Oriented X3. No acute distress. Eyes: Pupils equal, round and reactive to light. ENT: Pharynx mild generalized erythema but no mass, voice is hoarse, tolerating secretions, no swelling noted. TMs normal bilaterally Neck: Normal inspection. Neck supple. no mass felt CVS: Normal heart rate and rhythm. Pulses normal. Chest: ttp along sternum reproduces pain Respiratory: No respiratory distress. Breath sounds normal. forced dry cough noted Abdomen: Soft and nontender. Skin: Skin warm and dry. Normal skin color. Normal skin turgor. Extremities: No lower extremity edema. No calf ttp Neuro: Oriented X 3. No motor deficit. No sensory deficit. Course Course Course Narrative: EKG nonischemic, trop negative, ddimer negative stable for DC at this time MDM - Chest Pain MDM Narrative Medical decision making narrative: 51 yo female with hx of obesity, asthma, COVID 19 comes in with c/o sore throat, ear pain - very mild erythema no mass seen, lost her voice. She is not toxic tolerating secretions - her lungs are clear, the cough is very forced. Her EKG and trop are flat. At this time CXR clear, will order ddimer if negative will treat for laryngitis anticipate DC home. PO dexamethasone ordered for hx of RAD but her lungs are CTAB Lab Data Result diagrams: 10/27/21 05:36 10/27/21 05:36 Labs: Lab Results 10/27/21 10/27/21 10/27/21 Range/Units 05:35 05:36 05:36 WBC 9.8 (4.8-10.8) X10*3/uL RBC 3.95 L (4.20-5.50) X10*6/uL Hgb 12.3 (12.0-16.0) g/dl Hct 36.0 L (37.0-47.0) % MCV 91.1 (80.0-98.0) fL MCH 31.1 (27.0-33.0) pg MCHC 34.2 (31.0-35.0) g/dl RDW 12.7 (11.0-16.0) % Plt Count 242 (160-400) X10*3/uL MPV 10.1 (9.4-12.3) fL Immature Gran % (Auto) 0.3 (0.0-0.4) % Neut % (Auto) 71.8 (45-73) % Lymph % (Auto) 17.1 L (20-40) % [place] % (Auto) 7.6 (2-11) % Eos % (Auto) 2.9 (0-4) % Baso % (Auto) 0.3 (0-2) % Lymph # (Auto) 1.7 (1.2-4.9) X10*3/uL [place] # (Auto) 0.8 (0.1-1.2) X10*3/uL Eos # (Auto) 0.3 (0.0-0.4) X10*3/uL Baso # (Auto) 0.0 (0.0-0.2) X10*3/uL Abs Immat Gran (auto) 0.03 (0.00-0.03) X10*3/uL Absolute Neuts (auto) 7.0 (2.0-8.3) x10*3/uL Absolute Nucleated RBC 0.000 (0.0-0.012) X10*3/uL Nucleated RBC % (auto) 0.0 (0.0-0.2) /100WBC D-Dimer High Sensitivty NG/ML Sodium 137 (135-145) mmol/L Potassium 4.0 (3.3-5.1) mmol/L Chloride 104 (96-108) mmol/L Carbon Dioxide 24 (22-29) mmol/L Anion Gap 13 (12-20) BUN 11 (9-16) mg/dL Creatinine 0.81 (0.5-1.4) mg/dL Estim Creat Clear Calc 83.5 Estimated GFR > 60 Random Glucose 122 H (60-115) mg/dL Calcium 9.0 D (8.4-10.2) mg/dL Total Bilirubin 0.6 (0.0-1.0) mg/dL AST 16 (5-31) U/L ALT 19 (0-31) U/L Alkaline Phosphatase 50 (39-117) U/L Troponin I High Sens (<3.5-17.0) ng/L Total Protein 7.3 (6.5-8.0) g/dL Albumin 4.4 (3.5-5.0) g/dL COVID-19 (MISSAEL) Negative (Negative) COVID-19 Clin Com See Note 10/27/21 10/27/21 Range/Units 05:36 10:48 WBC (4.8-10.8) X10*3/uL RBC (4.20-5.50) X10*6/uL Hgb (12.0-16.0) g/dl Hct (37.0-47.0) % MCV (80.0-98.0) fL MCH (27.0-33.0) pg MCHC (31.0-35.0) g/dl RDW (11.0-16.0) % Plt Count (160-400) X10*3/uL MPV (9.4-12.3) fL Immature Gran % (Auto) (0.0-0.4) % Neut % (Auto) (45-73) % Lymph % (Auto) (20-40) % [place] % (Auto) (2-11) % Eos % (Auto) (0-4) % Baso % (Auto) (0-2) % Lymph # (Auto) (1.2-4.9) X10*3/uL [place] # (Auto) (0.1-1.2) X10*3/uL Eos # (Auto) (0.0-0.4) X10*3/uL Baso # (Auto) (0.0-0.2) X10*3/uL Abs Immat Gran (auto) (0.00-0.03) X10*3/uL Absolute Neuts (auto) (2.0-8.3) x10*3/uL Absolute Nucleated RBC (0.0-0.012) X10*3/uL Nucleated RBC % (auto) (0.0-0.2) /100WBC D-Dimer High Sensitivty < 150 NG/ML Sodium (135-145) mmol/L Potassium (3.3-5.1) mmol/L Chloride (96-108) mmol/L Carbon Dioxide (22-29) mmol/L Anion Gap (12-20) BUN (9-16) mg/dL Creatinine (0.5-1.4) mg/dL Estim Creat Clear Calc Estimated GFR Random Glucose (60-115) mg/dL Calcium (8.4-10.2) mg/dL Total Bilirubin (0.0-1.0) mg/dL AST (5-31) U/L ALT (0-31) U/L Alkaline Phosphatase (39-117) U/L Troponin I High Sens < 3.5 (<3.5-17.0) ng/L Total Protein (6.5-8.0) g/dL Albumin (3.5-5.0) g/dL COVID-19 (MISSAEL) (Negative) COVID-19 [employer] Com ECG Data ECG #1: Attestation: I personally reviewed and interpreted this ECG as follows: ECG interpretation date: 10/27/21 ECG interpretation time: 10:32 Interpretation: Rate: 87 Rhythm: NSR [place]: normal Normal P waves. Normal ANTOLIN. Normal QRS complex. ST T wave : no BENJI, inverted V1-V3, III and aVF qTC: normal prior studies: no change 2020 The study has been interpreted contemporaneously by me. . Discharge Plan Discharge Clinical Impression: Laryngitis, Acute chest wall pain Patient Disposition: Home, Self-Care Instructions: Laryngitis (ED), Chest Wall Pain (ED) Additional Instructions: return to ED for any worsening symptoms or concerns COVID test negative EKG heart markers and blood clot test negative Prescriptions: New azithromycin 250 mg tablet See Rx Instructions .ROUTE .COMPLEX Qty: 6 0RF Rx Instructions: For 250 mg dose pack: take 500 mg today (day 1), then 250 mg for 4 days (days 2-5) benzonatate 100 mg capsule 100 mg PO TID PRN (Reason: cough) Qty: 14 0RF hydrocodone-homatropine 5-1.5 mg/5 mL (5 mL) syrup 5 ml PO Q6H PRN (Reason: cough) Qty: 60 0RF Rx Instructions: Partial Fill upon patient request. No Action cholecalciferol (vitamin D3) 1,250 mcg (50,000 unit) capsule 1,250 mcg PO QWEEK Qty: 4 1RF thiamine HCl (vitamin B1) 100 mg tablet 100 mg PO DAILY Qty: 30 0RF ipratropium-albuterol 0.5 mg-3 mg(2.5 mg base)/3 mL solution for nebulization 3 ml inhalation Q4-6H PRN (Reason: wheezing) 30 Days Qty: 180 6RF fluticasone propion-salmeterol [Wixela Inhub] 500-50 mcg/dose blister with device 1 inh inhalation BID 30 Days Qty: 1 6RF Xolair 150 mg recon soln 225 mg subcut Q2W 28 Days Qty: 3 12RF montelukast [Singulair] 10 mg tablet 10 mg PO BEDTIME Qty: 30 0RF diazepam [Valium] 5 mg tablet 5 mg PO TID PRN (Reason: muscle spasm) Qty: 15 0RF diazepam [Valium] 5 mg tablet 5 mg PO TID PRN (Reason: muscle spasm) Qty: 15 0RF tramadol 50 mg tablet 50 mg PO Q6H PRN (Reason: pain) Qty: 20 0RF acetaminophen 500 mg capsule 500 mg PO QID PRN (Reason: pain) Qty: 20 0RF epinephrine 0.3 mg/0.3 mL auto-injector 0.3 mg IM Q10M PRN (Reason: anaphylaxis) Qty: 2 0RF Rx Instructions: for 2 doses levothyroxine 25 mcg capsule 25 mcg PO DAILY propranolol 10 mg tablet 10 mg PO BID vitamin A 10,000 unit capsule 10,000 unit PO DAILY cholecalciferol (vitamin D3) 10 mcg (400 unit) capsule 10 mcg PO DAILY albuterol sulfate 90 mcg/actuation HFA aerosol inhaler 2 puff inhalation Q4-6H PRN (Reason: shortness of breath or wheezing) 30 Days Qty: 1 6RF prednisone 10 mg tablet See Rx Instructions PO DAILY 20 Days Qty: 50 0RF Rx Instructions: Take 4 tabs daily for 5 days, then go down by 1 tab every 5 days PO daily; Referrals: Physician,Unknown J [Primary Care Provider] - (PCP if not better in 2 days) Stand Alone Forms: Work/School Release
[2021-10-27 10:35] VITALS: BP 128/76; PULSE 80; RESP 20; TEMP 36.8; O2SAT 97
[2021-10-27] MEDS: HYDROcodone/Homat 5/1.5/5 ML 5 ML SYRUP PO (11:00)
[2021-10-27] MEDS: dexAMETHasone sod phosphate 4 MG/ML VIAL 6 MG PO (11:00)
[2021-10-27 12:04] LABS: D Dimer High Sensitivity < 150 NG/ML
== END 2021-10-27 12:40 | disposition home or self-care (01) ==
PROVIDERS: Emergency Provider Emergency Medicine
DX: J04.0 Acute laryngitis (principal); R07.89 Other chest pain; E66.9 Obesity, unspecified; Z68.31 Body mass index [BMI] 31.0-31.9, adult; Z20.822 Contact with and (suspected) exposure to COVID-19; Z79.899 Other long term (current) drug therapy
CPT/HCPCS: 36415; 71046; 80053; 84484; 85025; 85379; 87635; 93005; 99283; J1100

== ENCOUNTER 2022-04-29 18:55 | Emergency (ER) | payer MEDICAID, SELFPAY ==
--- NOTE | ~2022-04-29 | XR_ITS ---
EXAMINATION: XR SHOULDER, LEFT CLINICAL INFORMATION: Pain in the shoulder. Limited mobility. COMPARISON: None TECHNIQUE: Four views of the left shoulder. FINDINGS: The bones and soft tissues are normal. No fracture. Glenohumeral and acromioclavicular alignment is anatomic with normal joint space. No abnormal soft tissue calcifications. XR/XR shoulder LT min 2V IMPRESSION: Normal left shoulder.
[2022-04-29 19:08] VITALS: BP 138/77; PULSE 84; RESP 16; TEMP 36.3; O2SAT 98; BMI 38.6
--- NOTE | 2022-04-29 20:27 | ECG_ITS ---
Test Reason : shoulder pain Blood Pressure : / mmHG Vent. Rate : 073 BPM Atrial Rate : 073 BPM P-R Int : 174 ms QRS Dur : 084 ms QT Int : 434 ms P-R-T Axes : 040 002 -07 degrees QTc Int : 478 ms Normal sinus rhythm Normal ECG When compared with ECG of 27-OCT-2021 05:10, No significant change was found Referred By: Marcia Serra Electronically Signed By:HILARIO REYES MD
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
[2022-04-29] MEDS: Cyclobenzaprine HCl 10 MG TABLET PO (21:13)
[2022-04-29] MEDS: Lidocaine 4 % Patch ADH..PATCH 1 PATCH TRANSDERMA (21:14)
== END 2022-04-29 21:34 | disposition home or self-care (01) ==
PROVIDERS: Emergency Provider Emergency Medicine
DX: M25.512 Pain in left shoulder (principal); R07.89 Other chest pain; Z79.899 Other long term (current) drug therapy
CPT/HCPCS: 73030; 93005; 99283

== ENCOUNTER 2022-07-20 10:39 | Emergency (ER) | payer OTHER, SELFPAY ==
[2022-07-20 11:01] VITALS: BP 149/91; PULSE 84; RESP 20; TEMP 36.7; O2SAT 96; BMI 38.7
[2022-07-20 11:04] VITALS: RESP 20; O2SAT 96
--- NOTE | 2022-07-20 11:07 | ECG_ITS ---
Test Reason : PALPITATIONS Blood Pressure : / mmHG Vent. Rate : 077 BPM Atrial Rate : 077 BPM P-R Int : 166 ms QRS Dur : 084 ms QT Int : 412 ms P-R-T Axes : 048 002 -03 degrees QTc Int : 466 ms Normal sinus rhythm Cannot rule out Anterior infarct , age undetermined Abnormal ECG When compared with ECG of 29-APR-2022 20:44, No significant change was found Referred By: Generic ED Physician Electronically Signed By:HILARIO REYES MD
--- NOTE | 2022-07-20 11:12 | ED_ITS ---
HPI - General Adult General Chief complaint: Upper Respiratory Symptoms Stated complaint: L ear pain/Sore throat/Heart palpitations Time Seen by Provider: 07/20/22 11:12 Source: patient Mode of arrival: ambulatory Limitations: no limitations History of Present Illness HPI narrative: Patient is a 51 year old assigned female at with a history of asthma presenting to the emergency department today with a sore throat and cough. Patient states that over the last 2 days she has had a sore throat and a cough. Patient denies any dizziness, lightheadedness, abdominal pain, nausea, vomiting, fever, chills, blurry vision, double vision, loss of vision, chest pain, difficulty breathing, shortness of breath, back pain, night sweats, pain with urination, increased urinary frequency, increased urinary urgency, blood in her urine or stool, syncope or a near syncopal episode, recent trauma or falls, bowel incontinence, bladder incontinence, bowel retention, bladder retention, or any other complaints at this time. Onset (ago): day(s) (2) Severity: mild Severity scale (1-10): 2 Relieving factors: none Exacerbating factors: none Associated symptoms: cough Treatments prior to arrival: none Related Data Home Medications Medication Instructions Recorded Confirmed levothyroxine 25 mcg capsule 25 mcg PO DAILY 07/22/20 09/01/20 propranolol 10 mg tablet 10 mg PO BID 07/22/20 09/01/20 cholecalciferol (vitamin D3) 10 10 mcg PO DAILY 08/12/20 09/01/20 mcg (400 unit) capsule vitamin A 3,000 mcg (10,000 unit) 10,000 unit PO DAILY 08/12/20 09/01/20 capsule Previous Rx's Medication Instructions Recorded montelukast 10 mg tablet 10 mg PO BEDTIME #30 tabs 07/13/20 (Singulair) albuterol sulfate 90 mcg/actuation 2 puff inhalation Q4-6H PRN 07/15/20 aerosol inhaler shortness of breath or wheezing 30 days #1 ea cholecalciferol (vitamin D3) 1,250 1,250 mcg PO QWEEK #4 caps 08/04/20 mcg (50,000 unit) capsule thiamine HCl (vitamin B1) 100 mg 100 mg PO DAILY #30 tabs 08/08/20 tablet diazepam 5 mg tablet (Valium) 5 mg PO TID PRN muscle spasm #15 01/16/21 tabs diazepam 5 mg tablet (Valium) 5 mg PO TID PRN muscle spasm #15 01/16/21 tabs epinephrine 0.3 mg/0.3 mL 0.3 mg (0.3 mL) IM Q10M PRN 01/22/21 injection, auto-injector anaphylaxis #2 ea fluticasone 500 mcg-salmeterol 50 1 inh inhalation BID 30 days #1 ea 02/18/21 mcg/dose blistr powdr for inhalation (Wixela Inhub) ipratropium 0.5 mg-albuterol 3 mg 3 ml inhalation Q4-6H PRN wheezing 02/18/21 (2.5 mg base)/3 mL nebulization 30 days #180 mL soln prednisone 10 mg tablet See Rx Instructions PO DAILY 20 03/25/21 days #50 tabs omalizumab 150 mg subcutaneous 225 mg subcut Q2W 28 days #3 ea 04/07/21 solution (Xolair) tramadol 50 mg tablet 50 mg PO Q6H PRN pain #20 tabs 10/14/21 acetaminophen 500 mg capsule 500 mg PO QID PRN pain #20 caps 10/15/21 azithromycin 250 mg tablet See Rx Instructions PO .COMPLEX #6 10/27/21 tabs benzonatate 100 mg capsule 100 mg PO TID PRN cough #14 caps 10/27/21 hydrocodone-homatropine 5 mg-1.5 5 ml PO Q6H PRN cough #60 mL 10/27/21 mg/5 mL (5 mL) oral syrup cyclobenzaprine 5 mg tablet 5 mg PO Q8H PRN pain (scale score 04/29/22 7-10) 5 days #14 tabs lidocaine 5 % topical patch 1 patch topical DAILY PRN pain #30 04/29/22 (Lidoderm) ea penicillin V potassium 500 mg 500 mg PO BID 10 days #20 tabs 07/20/22 tablet Allergies Allergy/AdvReac Type Severity Reaction Status Date / Time prochlorperazine Allergy Unknown UNKNOWN Verified 07/20/22 11:03 [From COMPAZINE] ibuprofen [From Motrin] AdvReac Mild STOMACH Verified 07/20/22 11:03 UPSET Review of Systems Constitutional: Constitutional: Reports no additional constitutional complaints, Denies chills, Denies fever(s) and Denies night sweats Eyes: Eyes: Reports no additional eye complaints, Denies blurry vision, Denies change in vision, Denies diplopia, Denies eye discharge, Denies loss of vision and Denies eye pain ENT: Denies dizziness and Reports sore throat Cardiovascular: Cardiovascular: Reports no additional cardiovascular complaints, Denies chest pain, Denies lightheadedness, Denies Loss of Consciousness and Denies dyspnea Respiratory: Respiratory: Reports no additional respiratory complaints, Reports cough and Denies dyspnea Gastrointestinal: Gastrointestinal: Reports no additional gastrointestinal complaints, Denies abdominal pain, Denies melena, Denies hematochezia, Denies change in bowel habits and Denies change in stool character Genitourinary: Genitourinary: Denies hematuria, Denies urinary frequency, Denies dysuria, Denies urinary incontinence, Denies urinary hesitancy and Denies urinary urgency Musculoskeletal: Musculoskeletal: Reports no additional musculoskeletal complaints, Denies numbness and Denies tingling Neurologic: Denies dizziness, Denies loss of vision, Denies numbness and Denies tingling Psychiatric: Psychiatric: Reports no additional psychiatric complaints Endocrine: Endocrine: Reports no additional endocrine complaints Hematologic/Lymphatic: Hematologic/Lymphatic: Reports no additional hematologic/lymphatic complaints Allergic/Immunologic: Allergic/Immunologic: Reports no additional allergic/immunologic complaints [facility] Past Medical History Attestation statement: The following information was validated with the patient. Source: old records reviewed and nursing notes reviewed Medical History Asthma COVID-19 HTN (hypertension) Hypothyroid Migraine Surgical History History of appendectomy History of repair of hiatal hernia History of sleeve gastrectomy Hx of cholecystectomy Hx of tubal ligation Family History Family History Mother No problems noted. Father Asthma Diabetes Thyroid condition Sister No problems noted. Sister Asthma Diabetes Thyroid condition Sister Asthma Diabetes Thyroid condition Cancer Brother Asthma Daughter No problems noted. Daughter Migraine Hypotension Son No problems noted. Son Asthma Kidney failure Social History Social History Alcohol intake: current Alcohol intake frequency: a few times a month Patient Tobacco Use Status: Never used Tobacco Smoked in Last 30 Days: No Use of substances other than those prescribed or required for medical reasons: No Advance Directives: No Advance Directives Information Provided: Yes Physical Exam ED Vital Signs: Vital Signs - 24 hr 07/20/22 11:01 07/20/22 11:04 07/20/22 11:04 Temperature 98.0 F Pulse Rate 84 Respiratory Rate 20 20 Blood Pressure 149/91 H Pulse Oximetry 96 96 Oxygen Delivery Method Room Air Room Air 07/20/22 12:47 Temperature 98.6 F Pulse Rate 79 Respiratory Rate 18 Blood Pressure 141/82 H Pulse Oximetry 95 Oxygen Delivery Method Room Air BMI result Body Mass Index 38.7 Const General: cooperative, no acute distress, alert and awake Nutritional Appearance: well nourished Orientation/consciousness: patient oriented x3 Limitations: no limitations HENMT Head: Yes normal to inspection and Yes atraumatic Ears: hearing grossly normal bilaterally and external ears normal General nose exam: Normal external nose present, no nasal discharge noted and no epistaxis Face and sinus: Yes normal facial exam, No abrasion and No laceration Mouth: Normal oral and palatal mucosa present, no drooling and no muffled voice Throat: Yes abnormal tonsil (bilateral erythema and exudates) Eyes General: appearance normal, both eyes and all related structures Periorbital: periorbital findings normal Eyelids: Yes eyelids normal Conjunctivae: conjunctivae normal Pupils: Equal, round and reactive pupils present EOM: EOMs intact bilaterally Neck Neck: Yes normal visual inspection, Yes full ROM and Yes no lymphadenopathy Chest Chest palpation & inspection: normal inspection of the chest Resp Effort & Inspection: normal respiratory effort, able to speak in complete sentences and Actively coughing GI Inspection: Yes normal to inspection Neuro General: patient oriented x3 and moves all extremities Cranial nerves: Yes Equal, round and reactive pupils present Cognition (Neuro): normal cognition Motor exam (neuro): 5/5 motor strength present throughout Sensory Exam: Normal double simultaneous stimulation for sensation Coordination: [id number] test normal Extrem General: Yes normal to inspection, Yes full ROM and Yes capillary refill normal Psych Appearance: grossly normal Mental Status: mental status grossly normal Affect: normal affect Attitude: cooperative Thought process: Normal thought process present Thought content: Normal thought content present Insight: Good insight present (Psych) Medical Decision Making Medical Decision Making MDM Narrative: Patient is a 51 year old assigned female at with a history of asthma presenting to the emergency department today with a cough and a sore throat. Patient's physical exam showed a dry cough and bilateral tonsilar erythema with exudates. Patient's COVID/Influenza/Strep tests were negative, however, the patient's clinical presentation is suspicious for bacterial pharyngitis so will cover. I explained my physical exam findings as well as all test results to the patient. I answered all questions asked by the patient. I stressed the importance of the patient taking her medication as prescribed. I stressed the importance of the patient following up with her primary care provider. I stressed the importance of the patient returning to the emergency department immediately if her symptoms were to worsen or if she were to develop any dizziness, shortness of breath, difficulty breathing, chest pain, blurry vision, loss of vision, nausea, vomiting, abdominal pain, fever, chills, back pain, or any other complaints. Patient verbalized agreement and understanding with this treatment plan and discharge. Differential Diagnosis Differential Diagnoses: The differential diagnosis associated with the presentation includes pharyngitis Lab Data MDM Lab Attestation statement: I reviewed the patient's lab results. Labs: Lab Results 07/20/22 07/20/22 07/20/22 Range/Units 11:11 11:11 11:11 COVID-19 (MISSAEL) Negative (Negative) COVID-19 Clin Com See Note Influenza Type A (DILSHAD) Negative (Negative) Influenza Type B (DILSHAD) Negative (Negative) Influenza A & B Note See Note S. pyogenes GrpA DILSHAD Negative (Negative) Discharge Plan Discharge Clinical Impression: Pharyngitis Patient Disposition: Home, Self-Care Instructions: Pharyngitis (ED) Additional Instructions: Follow up with your primary care provider. Return to the emergency department immediately if your symptoms worsen or if you develop any dizziness, shortness of breath, difficulty breathing, chest pain, blurry vision, loss of vision, nausea, vomiting, abdominal pain, fever, chills, back pain, or any other complaints. Prescriptions: New penicillin V potassium 500 mg tablet 500 mg PO BID 10 Days Qty: 20 0RF No Action cholecalciferol (vitamin D3) 1,250 mcg (50,000 unit) capsule 1,250 mcg PO QWEEK Qty: 4 1RF thiamine HCl (vitamin B1) 100 mg tablet 100 mg PO DAILY Qty: 30 0RF ipratropium-albuterol 0.5 mg-3 mg(2.5 mg base)/3 mL solution for nebulization 3 ml inhalation Q4-6H PRN (Reason: wheezing) 30 Days Qty: 180 6RF fluticasone propion-salmeterol [Wixela Inhub] 500-50 mcg/dose blister with device 1 inh inhalation BID 30 Days Qty: 1 6RF Xolair 150 mg recon soln 225 mg subcut Q2W 28 Days Qty: 3 12RF montelukast [Singulair] 10 mg tablet 10 mg PO BEDTIME Qty: 30 0RF diazepam [Valium] 5 mg tablet 5 mg PO TID PRN (Reason: muscle spasm) Qty: 15 0RF diazepam [Valium] 5 mg tablet 5 mg PO TID PRN (Reason: muscle spasm) Qty: 15 0RF tramadol 50 mg tablet 50 mg PO Q6H PRN (Reason: pain) Qty: 20 0RF acetaminophen 500 mg capsule 500 mg PO QID PRN (Reason: pain) Qty: 20 0RF azithromycin 250 mg tablet See Rx Instructions .ROUTE .COMPLEX Qty: 6 0RF Rx Instructions: For 250 mg dose pack: take 500 mg today (day 1), then 250 mg for 4 days (days 2-5) benzonatate 100 mg capsule 100 mg PO TID PRN (Reason: cough) Qty: 14 0RF hydrocodone-homatropine 5-1.5 mg/5 mL (5 mL) syrup 5 ml PO Q6H PRN (Reason: cough) Qty: 60 0RF Rx Instructions: Partial Fill upon patient request. epinephrine 0.3 mg/0.3 mL auto-injector 0.3 mg IM Q10M PRN (Reason: anaphylaxis) Qty: 2 0RF Rx Instructions: for 2 doses lidocaine [Lidoderm] 5 % adhesive patch,medicated 1 patch topical DAILY MDD remove after 12 hours PRN (Reason: pain) Qty: 30 0RF Rx Instructions: leave on most painful area for up to 12 hrs cyclobenzaprine 5 mg tablet 5 mg PO Q8H PRN (Reason: pain (scale score 7-10)) 5 Days Qty: 14 0RF levothyroxine 25 mcg capsule 25 mcg PO DAILY propranolol 10 mg tablet 10 mg PO BID vitamin A 10,000 unit capsule 10,000 unit PO DAILY cholecalciferol (vitamin D3) 10 mcg (400 unit) capsule 10 mcg PO DAILY albuterol sulfate 90 mcg/actuation HFA aerosol inhaler 2 puff inhalation Q4-6H PRN (Reason: shortness of breath or wheezing) 30 Days Qty: 1 6RF prednisone 10 mg tablet See Rx Instructions PO DAILY 20 Days Qty: 50 0RF Rx Instructions: Take 4 tabs daily for 5 days, then go down by 1 tab every 5 days PO daily; Referrals: [facility] [place] [facility] [Provider Group] (Call to establish and follow up with a primary care provider. If you already have a primary care provider, please follow up with them.) [facility] [place] [facility] [Provider Group] (Call to establish and follow up with a primary care provider. If you already have a primary care provider, please follow up with them.) [facility] [place] [facility] [Provider Group] (Call to establish and follow up with a primary care provider. If you already have a primary care provider, please follow up with them.) Stand Alone Forms: Work/School Release Interventions: ED Discharge Assessment Last Done: 07/20/22 12:50 Discharge Date/Time: 07/20/22 12:54 Print Language: Nepali
[2022-07-20 11:37] LABS: COVID-19 Test Negative (Negative); IDNOW Serial# 9DB6401D
[2022-07-20 11:47] LABS: IDNOW Serial# 6674DD1D; Strep A Nucleic Acid Negative (Negative)
[2022-07-20 11:52] LABS: IDNOW Serial# BCCEAD1C; Influenza A Negative (Negative); Influenza B2 Negative (Negative)
[2022-07-20 12:47] VITALS: BP 141/82; PULSE 79; RESP 18; TEMP 37; O2SAT 95
== END 2022-07-20 12:54 | disposition home or self-care (01) ==
PROVIDERS: Emergency Provider Emergency Medicine
DX: J02.9 Acute pharyngitis, unspecified (principal); R00.2 Palpitations; H92.02 Otalgia, left ear; Z79.899 Other long term (current) drug therapy; Z20.822 Contact with and (suspected) exposure to COVID-19; Z20.828 Contact with and (suspected) exposure to other viral communicable diseases
CPT/HCPCS: 87502; 87635; 87651; 93005; 99283; 99285

== ENCOUNTER 2022-09-22 14:24 | Outpatient (REF) | payer OTHER, SELFPAY ==
[2022-09-22 14:54] LABS: MANUAL DIFF FLAG NO
[2022-09-22 15:43] LABS: Basophils Percent Auto 0.4 % (0-2); Eosinophils Absolute Auto 0.2 X10*3/uL (0.0-0.4); Eosinophils Percent Auto 3.2 % (0-4); Hematocrit 36.8 % (37.0-47.0); Hemoglobin 12.4 g/dl (12.0-16.0); Imm Gran Abs Auto 0.02 X10*3/uL (0.00-0.03); Imm Gran Pct Auto 0.3 % (0.0-0.4); Lymphocytes Absolute Auto 2.3 X10*3/uL (1.2-4.9); Lymphocytes Percent Auto 32.9 % (20-40); Mean Corpuscular HGB Conc 33.7 g/dl (31.0-35.0); Mean Corpuscular Hemoglobin 31.4 pg (27.0-33.0); Mean Corpuscular Volume 93.2 fL (80.0-98.0); Mean Platelet Volume 10.7 fL (9.4-12.3); Monocytes Absolute Auto 0.7 X10*3/uL (0.1-1.2); Monocytes Percent Auto 10.2 % (2-11); Neutrophils Absolute Auto 3.7 x10*3/uL (2.0-8.3); Platelet Count 234 X10*3/uL (160-400); Red Blood Count 3.95 X10*6/uL (4.20-5.50)
== END 2022-09-22 14:25 | disposition home or self-care (01) ==
LOC: HO.LAB 14:24
PROVIDERS: Visit Provider Internal Medicine Pulmonary Disease
DX: J45.50 Severe persistent asthma, uncomplicated (principal); G47.30 Sleep apnea, unspecified; R06.09 Other forms of dyspnea; Z91.09 Other allergy status, other than to drugs and biological substances
CPT/HCPCS: 36415; 82785; 85025; 86003; 99212

== ENCOUNTER 2022-09-30 08:59 | Outpatient (REF) | payer OTHER, SELFPAY ==
--- NOTE | 2022-09-30 | PFT_ITS ---
INDICATION: Asthma. SPIROMETRY: The FEV1 to FVC 82% with an FEV1 of 2.11 L which is 78% predicted and an FVC of 2.55 L which is 75% predicted. No significant response to bronchodilators noted. Maximum voluntary ventilation 77% predicted. LUNG VOLUMES: Total lung capacity 95% predicted with an expiratory residual volume of 32% predicted. DIFFUSION CAPACITY: DLCO of 93% predicted. COMPARISONS: None. INTERPRETATION: No obstructive, no restrictive ventilatory defects identified. No significant response to bronchodilators noted. There is a slight decrease in maximum voluntary ventilation secondary to likely deconditioning. Lung volumes are normal except for decrease in the expiratory residual volume secondary to an elevated BMI. Otherwise, diffusion capacity is within normal limits. If asthma is in the differential, methacholine challenge may be helpful in assessing for hyperreactive airways disease. Clinical correlation warranted. MD SOURAV Montoya/CADEN / [id number]
== END 2022-09-30 09:00 | disposition home or self-care (01) ==
LOC: HO.RESP 08:59
PROVIDERS: Visit Provider Internal Medicine Pulmonary Disease
DX: J45.50 Severe persistent asthma, uncomplicated (principal)
CPT/HCPCS: 94060; 94727; 94729

== ENCOUNTER → 2022-10-04 07:57 | Outpatient (REF) | payer OTHER, SELFPAY ==
--- NOTE | 2022-10-04 08:01 | CA_ITS ---
Transthoracic Echocardiogram Patient (Last, First, Middle): Faina Hood, Gender: Female Date of : 1970 Age: 52 Procedure Date: 10/04/2022 Procedure Type: Transthoracic Echocardiogram Location: OP Height: 162.56 cm Weight: 98.88 kg BSA: 2.03 m2 Heart Rate: bpm BP: 162 / 82 mmHg Education And Training Coordinator: DINO Referring MD: Braulio Hale MD Symptoms: R06.09 - Other forms of dyspnea Study Quality: Adequate with contrast Conclusions: - The left ventricular systolic function is normal. The calculated ejection fraction is 64% by biplane method. - No obvious valvular pathology seen on this study. - Tricuspid regurgitation envelope is inadequate for calculation of right ventricular systolic pressure. Findings Procedure Information Contrast agent, definity, is being given per protocol without apparent complications. Left Ventricle Normal left ventricular cavity size. There is normal left ventricular wall thickness. The left ventricular systolic function is normal. The calculated ejection fraction is 64% by biplane method. There is no evidence of regional wall motion abnormalities. Diastolic function is normal for age. Right Ventricle Normal right ventricular cavity size and systolic function. Atria Both atria are normal in size. Aortic Valve The aortic valve was not well visualized. There is no aortic valve stenosis. There is no aortic valve regurgitation. Mitral Valve The mitral valve appears normal. There is trace mitral valve regurgitation. There is no mitral valve stenosis. Pulmonic Valve The pulmonic valve is likely normal. Tricuspid Valve There is mild tricuspid valve regurgitation. Tricuspid regurgitation envelope is inadequate for calculation of right ventricular systolic pressure. Great Vessels The asc aorta is normal in size. Venous The inferior vena cava is normal in size and collapses greater than 50% with inspiration. Pericardium/Pleural There is no evidence of pericardial effusion. Prior Study Comparison No prior study available for comparison. Recommendations, Care & Conclusions No obvious valvular pathology seen on this study. Measurements 2D Linear Measurements IVSd: 0.98 0.6-0.9/0.6-1.0 cm LVIDd: 4.78 3.9-5.3/4.2-5.9 cm LVIDd Index: 2.35 2.4-3.2/2.2-3.1 cm/m2 LVIDs: 3.15 2.0-3.6 cm LVPWd: 0.92 0.7-1.1 cm LA Diam: 2.70 2.7-3.8/3.0-4.0 cm LAIDs Index: 1.33 1.5-2.3 cm/m2 LV Mass: 196.97 67-162/88-224 g LV Mass Index: 97.03 43-95/49-115 g/m2 LVOT Diam: 1.70 3.0+(-)1.3 cm 2D Systolic Function EF 4C: 57.10 >55% EF 2C: 69.30 >55% EF BiP: 64.20 >55% Mitral Valve MV Pk E: 0.79 MV PK A: 0.78 MV Decel Time: 236.00 E/A: 1.00 E'Lateral: 6.74 E'Medial: 6.31 E/E' Med: 12.60 E/E' Lat: 11.80 PHT: 69.00 MVA PHT: 3.19 Decel Hamilton: 3.36 Aortic Valve AoV Pk Jose: 1.45 AoV Mn Jose: 0.98 AoV VTI: 0.37 AoV Pk Grad: 8.00 Aov Mn Grad: 4.00 NORIS Cont.VTI: 1.66 LVOT LVOT Pk Jose: 1.09 LVOT Mn Jose: 0.71 LVOT VTI: 0.27 LVOT Pk Grad: 5.00 LVOT Mn Grad: 2.00 LVOT Diam: 1.70 LVOT Area: 2.27 Diastolic Function MV Pk E: 0.79 MV Pk A: 0.78 E/A: 1.00 E'Medial: 6.31 E/E' Med: 12.60 E' Laterial: 6.74 E/E' Lat: 11.80 Right Ventricle TAPSE (mm): 25.30 TVS' Jose: 13.70 Tricuspid Valve RA Press: 3.00 Great Vessels Aorta Sinus of Valsalva: 2.83 2.0-3.[address] Ridge: 2.35 1.7-3.4 cm Ao Asc: 3.00 2.1-3.4 cm Updated in Other Vendor System with Status of Final Lavell Hawk MD electronically signed on 10/04/2022 10:46:22 AM with status of Final
== END ==
LOC: HO.CARD 07:57
PROVIDERS: Visit Provider Internal Medicine Pulmonary Disease
DX: R06.09 Other forms of dyspnea (principal)
CPT/HCPCS: 93306; Q9957

== ENCOUNTER 2022-10-14 11:18 | Outpatient (REF) | payer OTHER, SELFPAY | END 2022-10-14 11:19 | disposition home or self-care (01) | LOC: HO.MDS 11:18 | PROVIDERS: Visit Provider Internal Medicine Pulmonary Disease | DX: J45.50 Severe persistent asthma, uncomplicated (principal) | CPT/HCPCS: 96372; 99212; J2357 ==

== ENCOUNTER → 2022-10-28 15:02 | Outpatient (REF) | payer OTHER, SELFPAY | LOC: HO.SL 15:02 | PROVIDERS: Visit Provider Internal Medicine Pulmonary Disease | DX: G47.33 Obstructive sleep apnea (adult) (pediatric) (principal) | CPT/HCPCS: 95806 ==

== ENCOUNTER → 2022-10-28 15:12 | Outpatient (BNV) | payer OTHER, SELFPAY | PROVIDERS: Visit Provider Internal Medicine | DX: G47.33 Obstructive sleep apnea (adult) (pediatric) (principal) | CPT/HCPCS: 95806 ==

== ENCOUNTER 2022-11-10 11:46 | Outpatient (REF) | payer OTHER, SELFPAY | END 2022-11-10 11:47 | disposition home or self-care (01) | LOC: HO.MDS 11:46 | PROVIDERS: Visit Provider Internal Medicine Pulmonary Disease | DX: J45.50 Severe persistent asthma, uncomplicated (principal) | CPT/HCPCS: 96372; J2357 ==

== ENCOUNTER 2022-12-01 15:08 | Outpatient (REF) | payer OTHER, SELFPAY | END 2022-12-01 15:09 | disposition home or self-care (01) | LOC: HO.MDS 15:08 | PROVIDERS: Visit Provider Internal Medicine Pulmonary Disease | DX: J45.50 Severe persistent asthma, uncomplicated (principal) | CPT/HCPCS: 96372; J2357 ==

== ENCOUNTER 2022-12-23 13:27 | Outpatient (REF) | payer OTHER, SELFPAY | END 2022-12-23 13:28 | disposition home or self-care (01) | LOC: HO.MDS 13:27 | PROVIDERS: Visit Provider Internal Medicine Pulmonary Disease | DX: J45.50 Severe persistent asthma, uncomplicated (principal) | CPT/HCPCS: 96372; J2357 ==

== ENCOUNTER 2023-01-10 13:32 | Outpatient (REF) | payer OTHER, SELFPAY | END 2023-01-10 13:33 | disposition home or self-care (01) | LOC: HO.MDS 13:32 | PROVIDERS: Visit Provider Internal Medicine Pulmonary Disease | DX: J45.50 Severe persistent asthma, uncomplicated (principal) | CPT/HCPCS: 96372; J2357 ==

== ENCOUNTER 2023-01-26 12:29 | Outpatient (REF) | payer OTHER, SELFPAY | END 2023-01-26 12:30 | disposition home or self-care (01) | LOC: HO.MDS 12:29 | PROVIDERS: Visit Provider Internal Medicine Pulmonary Disease | DX: J45.50 Severe persistent asthma, uncomplicated (principal) | CPT/HCPCS: 96372; J2357 ==

== ENCOUNTER 2023-02-14 13:15 | Outpatient (REF) | payer OTHER, SELFPAY | END 2023-02-14 13:16 | disposition home or self-care (01) | LOC: HO.MDS 13:15 | PROVIDERS: Visit Provider Internal Medicine Pulmonary Disease | DX: J45.50 Severe persistent asthma, uncomplicated (principal) | CPT/HCPCS: 96372; J2357 ==

== ENCOUNTER 2023-02-24 10:49 | Outpatient (AMB) | payer OTHER, SELFPAY ==
[2023-02-24 10:50] VITALS: BP 137/88; PULSE 73; O2SAT 98; BMI 39.0
--- NOTE | 2023-02-24 10:50 | A.OFFVIS_ITS ---
Intake Vital Signs 02/24/23 10:50 Height 5 ft 4 in Weight 227 lb 1.218 oz BMI 39.0 BP 137/88 Blood Pressure Location Lt brachial Position Sitting Pulse 73 Pulse Source Doppler Pulse Oximetry (%) 98 Oxygen Delivery Method Room Air Intake Visit Reasons: asthma Allergies prochlorperazine [From COMPAZINE] Allergy (Unknown, Verified 02/24/23 10:53) UNKNOWN ibuprofen [From Motrin] Adverse Reaction (Mild, Verified 02/24/23 10:53) STOMACH UPSET HPI asthma HPI Details 52-year-old lady, nonsmoker, followed fo r severe persistent asthma and environmental allergies. Patient Has been using Xolair, Wixela, and albuterol MDI with good control of her symptoms. She denies recent exacerbations. [facility] Medical History Asthma COVID-19 HTN (hypertension) Hypothyroid Migraine Surgical History History of appendectomy History of repair of hiatal hernia History of sleeve gastrectomy Hx of cholecystectomy Hx of tubal ligation Family History Mother No problems noted. Father Asthma Diabetes Thyroid condition Sister No problems noted. Sister Asthma Diabetes Thyroid condition Sister Asthma Diabetes Thyroid condition Cancer Brother Asthma Daughter No problems noted. Daughter Migraine Hypotension Son No problems noted. Son Asthma Kidney failure Social History Alcohol intake: current Alcohol intake frequency: a few times a month Patient Tobacco Use Status: Never used Tobacco Review of Systems Const Denies daytime sleepiness, Denies excessive sweating, Denies fatigue, Denies fever(s), Denies lethargy, Denies malaise, Denies night sweats, Denies snoring and Denies weight loss Eyes Denies blurry vision and Denies itchy eyes ENT Denies nasal congestion, Denies post nasal drip, Denies sinus pain, Denies sinus pressure and Denies other ( Thrush) Card Denies chest pain, Denies pedal edema, Denies dyspnea, Denies orthopnea and Denies paroxysmal nocturnal dyspnea Resp Denies cough, Denies hemoptysis, Denies excessive phlegm production, Denies dyspnea, Denies snoring and Denies wheezing GI Denies abdominal pain and Denies heartburn Musc Denies myalgias, Denies arthralgias and Denies joint swelling Skin/Breast Denies rash Neuro Denies memory loss and Denies seizure-like activity Psych Denies abnormal sleep pattern, Denies anxiety and Denies memory loss Endo Denies excessive sweating, Denies fatigue and Denies heat intolerance Brian/Lymph Denies easy bruising Aller/Immun Denies itchy eyes, Denies seasonal rhinorrhea and Denies wheezing Physical Exam Vital Signs: Last Vital Signs Pulse 73 02/24/23 10:50 BP 137/88 02/24/23 10:50 Pulse Ox 98 02/24/23 10:50 Oxygen Delivery Method Room Air 02/24/23 10:50 BMI result Body Mass Index 39.0 Const General: no acute distress and alert Nutritional Appearance: not obese Orientation/consciousness: Other orientation findings ( oriented) HEENT Head: Yes atraumatic Eyes General: appearance normal, both eyes and all related structures Sclerae: sclerae normal EOM: EOMs intact bilaterally Neck Neck: Yes supple Lymphatic: no lymphadenopathy noted Resp Effort & Inspection: normal respiratory effort and no use of accessory muscles Auscultation: clear to auscultation bilaterally Cardio Rate: regular rate Rhythm: regular rhythm Heart sounds: no gallops, no murmurs and no rubs Skin General skin exam: other ( warm) Extrem General: No clubbing, No cyanosis and No edema Assessment & Plan Assessment & Plan (1) Severe persistent allergic asthma: Code(s): J45.50 - Severe persistent asthma, uncomplicated Plan: Well controlled on current regimen of Xolair, Wixela, and albuterol MDI. Continue current regimen. (2) Environmental allergies: Code(s): Z91.09 - Other allergy status, other than to drugs and biological substances Plan: Well controlled on Xolair. Continue current regimen. (3) Sleep apnea: Code(s): G47.30 - Sleep apnea, unspecified Plan: Controlled on current CPAP therapy. Continue CPAP therapy. Coding Level of Care Code Est Pt Level 4 (23373) Diagnoses Severe persistent allergic asthma J45.50 Environmental allergies Z91.09 Sleep apnea G47.30
== END 2023-02-24 11:09 | disposition home or self-care (01) ==
PROVIDERS: PCP Internal Medicine; Visit Provider Internal Medicine Pulmonary Disease
DX: J45.50 Severe persistent asthma, uncomplicated (principal); Z91.09 Other allergy status, other than to drugs and biological substances; G47.30 Sleep apnea, unspecified
CPT/HCPCS: 99214

== ENCOUNTER → 2023-02-24 10:49 | Outpatient (BNVA) | payer OTHER, SELFPAY | PROVIDERS: PCP Internal Medicine; Visit Provider Internal Medicine Pulmonary Disease | DX: J45.50 Severe persistent asthma, uncomplicated (principal); G47.30 Sleep apnea, unspecified; Z91.09 Other allergy status, other than to drugs and biological substances | CPT/HCPCS: 99212 ==

== ENCOUNTER 2023-02-28 13:28 | Outpatient (REF) | payer OTHER, SELFPAY | END 2023-02-28 13:29 | disposition home or self-care (01) | LOC: HO.MDS 13:28 | PROVIDERS: Visit Provider Internal Medicine Pulmonary Disease | DX: J45.50 Severe persistent asthma, uncomplicated (principal) | CPT/HCPCS: 96372; J2357 ==

== ENCOUNTER 2023-03-04 16:39 | Emergency (ER) | payer OTHER, SELFPAY ==
--- NOTE | ~2023-03-04 | CT_ITS ---
EXAMINATION: CT brain and CT cervical spine without contrast. CLINICAL INDICATION: Seizure neck pain, high BP. TECHNIQUE: 5 mm thin axial and reformatted 2 mm thin sagittal on coronal images of brain were obtained. Subsequently axial 3 mm and reformatted to minimum and thin sagittal and coronal images of cervical spine were obtained. DLP [id number]. This CT examination was performed using dose optimization technique as appropriate, variously including the following: Automated exposure control Adjustment of MA and/or KV according to patient size(this includes techniques or standardized protocols for targeted exams where dose is matched to indication/reason for exam; extremities or head. Use of iterative reconstruction techniques. FINDINGS: Brain: There is no acute intra-axial, extra-axial bleed, masses or midline shift. There is no acute infarction or lesion. There is no edema. The jensen-white matter differentiation is maintained normal. The lateral ventricles are symmetrical in size and configuration without enlargement. Bone windows reveal no calvarial abnormality. There is no scalp soft tissue abnormality. Bilateral paranasal sinuses and mastoid air cells are well-aerated. Cervical spine: There is as mild straightening of cervical lordosis. The vertebral heights, alignment and disc heights are normal. No visible acute fracture, dislocation or subluxation seen. The craniovertebral junction and C1-C2 alignment is normal. There is mild ventral spondylosis C3-C4 through C6-C7 disc levels. There is moderate left C3-C4and C4-C5 facet joint arthropathy and hypertrophy. The prevertebral and paravertebral soft tissues are normal. The tracheal airway is widely patent. Thyroid lobes are symmetric and normal. The lung apices are clear CT/CT cervical spine wo IV con IMPRESSION: No acute intracranial process seen Mild straightening of cervical lordosis without any visible acute fracture, dislocation or subluxation. Moderate degenerative left C3-C4 and C4-C5 facet arthropathy.
--- NOTE | ~2023-03-04 | CT_ITS ---
EXAMINATION: CT ANGIOGRAM OF THE CHEST, ABDOMEN AND PELVIS WITHOUT AND WITH CONTRAST CLINICAL INFORMATION: Chest pain COMPARISON: None. TECHNIQUE: Multidetector volumetric CT imaging of the chest, abdomen, and pelvis was performed before and after the administration of 100 mL of Omnipaque 350 intravenous contrast without immediate adverse reactions. 3D POSTPROCESSING: Multiple 3-D angiographic images were processed from the initial data set by the [facility] under concurrent physician supervision. DOSE LOWERING TECHNIQUES: This CT examination was performed using dose optimization techniques as appropriate, variously including the following: - Automated exposure control - Adjustment of mA and/or kV according to patient size (this includes techniques or standardized protocols for targeted exams where dose is matched to indication/reason for exam; i.e. extremities or head) - Use of iterative reconstruction technique DLP: 911 mGy-cm. FINDINGS: VASCULAR: ASCENDING AORTA: Normal caliber and patent. No evidence of aneurysm or dissection. AORTIC ARCH: Normal caliber and patent. No evidence of aneurysm or dissection. Normal three-vessel arch anatomy. Branch vessels are widely patent DESCENDING AORTA: Normal caliber and patent. No evidence of aneurysm or dissection. ABDOMINAL AORTA: Normal caliber and patent. No evidence of aneurysm or dissection. CELIOMESENTERIC ARTERIES: Patent RENAL ARTERIES: Patent RIGHT ILIOFEMORAL ARTERIES: Common iliac, external iliac, internal iliac and visualized femoral arteries are widely patent LEFT ILIOFEMORAL ARTERIES: Common iliac, external iliac, internal iliac and visualized femoral arteries are widely patent NONVASCULAR: LUNGS: The lungs are clear with no evidence of inflammation or nodules. MEDIASTINUM: The mediastinum is normal. CORONARY ARTERY CALCIFICATION: None visualized on this study. PLEURA: There is no pleural effusion. No pleural mass or thickening. LIVER, GALLBLADDER, AND BILIARY TREE: The liver is normal in size, shape, and attenuation. No focal hepatic lesion or biliary ductal dilatation is present. Status post cholecystectomy PANCREAS: Unremarkable. SPLEEN: Unremarkable. ADRENAL GLANDS: Unremarkable. KIDNEYS AND URETERS: The kidneys are normal in size, shape, and attenuation. No hydronephrosis, hydroureter, or calculi seen. No perinephric stranding. BLADDER: Unremarkable. GASTROINTESTINAL TRACT: Postsurgical changes seen within the stomach. The small and large bowel are unremarkable. The appendix is unremarkable. ABDOMINAL WALL: No significant hernia is appreciated. LYMPH NODES: Normal. PELVIC VISCERA: Uterus is normal in size and appearance. Intrauterine device is seen in good position within the endometrial cavity. Bilateral ovaries are normal OSSEOUS STRUCTURES: Unremarkable. CT/CT angio abdomen pelvis IMPRESSION: No significant abnormality.
[2023-03-04 17:15] VITALS: BP 152/88; PULSE 86; RESP 20; TEMP 36.8; O2SAT 96; BMI 39.1
--- NOTE | 2023-03-04 17:17 | ED.GENADULT ---
HPI - General Adult General Chief complaint: Neuro Symptoms/Deficit Stated complaint: high blood pressure, neck pain Time Seen by Provider: 03/04/23 17:39 History of Present Illness HPI narrative: 52 years old with a past medical history of hypertension, asthma, anxiety, fibromyalgia presents emergency room for elevated blood pressure. Patient reports for the past 24 hours she has being having back pain that the patient localized in the middle of her shoulder blade associated with chest pain. Patient reports that pain worsened with movement, is not exertional and has been constant for the past 24 hours. Patient denies abdominal pain, reports nausea, dizziness, headache but denies unilateral weaknes, slurred speech. At times report revision which however as resolved by the time patient was assessed in the emergency room. Patient does not smoke, does not use illicit drugs, does not use alcohol. No history of CAD. Related Data Home Medications Medication Instructions Recorded Confirmed levothyroxine 25 mcg capsule 25 mcg PO DAILY 07/22/20 09/01/20 propranolol 10 mg tablet 10 mg PO BID 07/22/20 09/01/20 cholecalciferol (vitamin D3) 10 10 mcg PO DAILY 08/12/20 09/01/20 mcg (400 unit) capsule vitamin A 3,000 mcg (10,000 unit) 10,000 unit PO DAILY 08/12/20 09/01/20 capsule Previous Rx's Medication Instructions Recorded montelukast 10 mg tablet 10 mg PO BEDTIME #30 tabs 07/13/20 (Singulair) albuterol sulfate 90 mcg/actuation 2 puff inhalation Q4-6H PRN 07/15/20 aerosol inhaler shortness of breath or wheezing 30 days #1 ea cholecalciferol (vitamin D3) 1,250 1,250 mcg PO QWEEK #4 caps 08/04/20 mcg (50,000 unit) capsule thiamine HCl (vitamin B1) 100 mg 100 mg PO DAILY #30 tabs 08/08/20 tablet diazepam 5 mg tablet (Valium) 5 mg PO TID PRN muscle spasm #15 01/16/21 tabs epinephrine 0.3 mg/0.3 mL 0.3 mg (0.3 mL) IM Q10M PRN 01/22/21 injection, auto-injector anaphylaxis #2 ea fluticasone 500 mcg-salmeterol 50 1 inh inhalation BID 30 days #1 ea 02/18/21 mcg/dose blistr powdr for inhalation (Wixela Inhub) ipratropium 0.5 mg-albuterol 3 mg 3 ml inhalation Q4-6H PRN wheezing 02/18/21 (2.5 mg base)/3 mL nebulization 30 days #180 mL soln tramadol 50 mg tablet 50 mg PO Q6H PRN pain #20 tabs 10/14/21 acetaminophen 500 mg capsule 500 mg PO QID PRN pain #20 caps 10/15/21 benzonatate 100 mg capsule 100 mg PO TID PRN cough #14 caps 10/27/21 hydrocodone-homatropine 5 mg-1.5 5 ml PO Q6H PRN cough #60 mL 10/27/21 mg/5 mL (5 mL) oral syrup cyclobenzaprine 5 mg tablet 5 mg PO Q8H PRN pain (scale score 04/29/22 7-10) 5 days #14 tabs lidocaine 5 % topical patch 1 patch topical DAILY PRN pain #30 04/29/22 (Lidoderm) ea penicillin V potassium 500 mg 500 mg PO BID 10 days #20 tabs 07/20/22 tablet omalizumab 150 mg subcutaneous 300 mg subcut Q2W 28 days #4 ea 09/29/22 solution (Xolair) Allergies Allergy/AdvReac Type Severity Reaction Status Date / Time ibuprofen [From Motrin] AdvReac Mild STOMACH Verified 03/04/23 17:21 UPSET prochlorperazine AdvReac Unknown Shakiness Verified 03/04/23 19:03 [From COMPAZINE] metoclopramide [From Reglan] AdvReac Shakiness Verified 03/04/23 19:03 Review of Systems Review of Systems: Yes all other systems are reviewed and are negative [facility] Past Medical History Medical History Asthma COVID-19 HTN (hypertension) Hypothyroid Migraine Surgical History History of appendectomy History of repair of hiatal hernia History of sleeve gastrectomy Hx of cholecystectomy Hx of tubal ligation Family History Family History Mother No problems noted. Father Asthma Diabetes Thyroid condition Sister No problems noted. Sister Asthma Diabetes Thyroid condition Sister Asthma Diabetes Thyroid condition Cancer Brother Asthma Daughter No problems noted. Daughter Migraine Hypotension Son No problems noted. Son Asthma Kidney failure Social History Alcohol intake: current Alcohol intake frequency: a few times a month Patient Tobacco Use Status: Never used Tobacco Smoked in Last 30 Days: No Use of substances other than those prescribed or required for medical reasons: No Advance Directives: No Advance Directives Information Provided: No Physical Exam ED Vital Signs: Vital Signs - 24 hr 03/04/23 17:15 03/04/23 18:15 03/04/23 19:03 Temperature 98.2 F Pulse Rate 86 78 75 Respiratory Rate 20 18 18 Blood Pressure 152/88 H 167/88 H 156/78 H Pulse Oximetry 96 98 Oxygen Delivery Method Room Air Room Air BMI result Body Mass Index 39.1 General: Alert, Not in Distress Skin: No rash, warm HEENT: Atraumatic, No Exudate or Pharyngeal Erythema Resp: Normal Breath sounds bilaterally Cardio: Regular rate and Rhythm, Normal S1, S2. pulses are 2+ on all extremities ABD: Abd soft, non tender, no guarding or rebound. Normal Bowel sounds. : No cva tenderness Neuro: Alert, oriented x4, PERRL Strenght 5/5 on all extremities Sensation is preserved in both lower and upper extremities Index to nose: normal Cranial Nerves II-XII grossly intact No dysarthria, or aphasia No neglet. Visual morejon are normal bilaterally Psych: Cooperative, NO SI NIH Stroke Scale Internal: Initial- Upon Arrival Time: 17:20 Level of Consciousness: Alert Level of Consciousness Questions: Answers both questions correctly Level of Consciousness Commands: Performs both tasks correctly Best Gaze: Normal Visual: No visual loss Facial Palsy: Normal Motor Arm (Right): No drift Motor Arm (Left): No drift Motor Leg (Right): No drift Motor Leg (Left): No drift Limb Ataxia: Absent Sensory: Normal Best Language: No aphasia Dysarthia: Normal Extinction and Inattention: No abnormality Score: 0 Course Course Course Narrative: This is a rapid medical exam: Additional HPI, ROS, PE not included below will be deferred to primary provider. Patient is a 52-year-old female with history of HTN presenting to the ED with elevated BP readings at home. States she is currently on propranolol and amlodipine and takes her medications as prescribed. Complains of headache and left sided neck pain. Blurred vision to both eyes since 10am. Numb sensation to tongue upon waking which has since resolved. BP 152/88 in triage. Highest home BP approx 180/100. NIHSS 0. Plan: EKG, CT head and neck, labs Reevaluation(s) Reevaluation #1: Patient developed red rash on her chest after metoclopramide. Patient has already got Benadryl as part of migraine cocktail. Will give 50 mg of prednisone. Imaging is pending Time: 18:56 Reevaluation #2: Rash and symptoms have improved. Pending imaging. Time: 20:37 Reevaluation #3: Rash resolved. Symptoms of improvement. I personally reviewed imaging and I do not see any signs of aortic dissection or C-spine fracture or intracranial bleed. Pending formal reading. Plan to DC if imaging is negative Time: 21:42 Additional Reevaluation(s): Patient imaging is unremarkable. At this time I think the most likely cause of patient's symptoms was a typical migraine which may account also for elevated blood pressure. Patient reports improvement of her symptoms. I recommended her to follow up with primary care physician, return precaution discussed with patient and at bedside. Will DC home. Medications Administered Discontinued Medications Generic Name Dose Route Start Last Admin Trade Name Jr PRN Reason Stop Dose Admin Acetaminophen 975 mg 03/04/23 17:49 03/04/23 18:19 Acetaminophen 325 Mg Tablet PO 03/04/23 17:50 975 mg ONCE ONE Administration Diphenhydramine HCl 50 mg 03/04/23 17:49 03/04/23 18:27 Diphenhydramine Hcl 50 Mg/Ml Vial IVPUSH 03/04/23 17:50 50 mg ONCE ONE Administration Sodium Chloride 500 mls @ 999 mls/hr 03/04/23 18:00 03/04/23 19:01 Ns IV 03/04/23 18:30 Infused .Q31M HENRY Infusion Iohexol 85 ml 03/04/23 21:18 03/04/23 21:19 Iohexol 350 Mg/Ml 100 Ml Infus..Btl IV 03/04/23 21:19 85 ml ONCE ONE Administration Lorazepam 0.5 mg 03/04/23 19:21 03/04/23 19:50 Lorazepam 0.5 Mg Tablet PO 03/04/23 19:22 0.5 mg ONCE ONE Administration Metoclopramide HCl 10 mg 03/04/23 17:51 03/04/23 18:25 Metoclopramide Hcl 10 Mg/2 Ml Vial IVPUSH 03/04/23 17:52 10 mg ONCE ONE Administration Prednisone 50 mg 03/04/23 18:56 03/04/23 19:00 Prednisone 10 Mg Tablet PO 03/04/23 18:57 50 mg ONCE ONE Administration Medical Decision Making Medical Decision Making [facility] Narrative: 52 years old presenting to the emergency room for a high blood pressure associated with chest pain with radiation to the back. Patient also complaining of headache, dizziness and tongue numbness. Symptoms are very nonspecific and it is possible that the elevated blood pressure secondary to headache and pain. I have low suspicion for a aortic dissection or ever in consideration house the patient described pain at onset the chest abdomen and pelvis Other possible differential diagnosis include atypical migraine, fibromyalgia flair, uncontrolled HTN. Plan: CTA chest abdomen pelvis Migraine cocktail not using NSAID until the section is rule out. Admission/Observation Consideration of admission/observation: Escalation of care including admission/observation considered Lab Data [facility] Lab Attestation statement: I reviewed the patient's lab results. 03/04/23 17:34 03/04/23 17:34 Labs: Lab Results 03/04/23 Range/Units 17:34 WBC 6.7 (4.8-10.8) X10*3/uL RBC 4.14 L (4.20-5.50) X10*6/uL Hgb 12.8 (12.0-16.0) g/dl Hct 38.0 (37.0-47.0) % MCV 91.8 (80.0-98.0) fL MCH 30.9 (27.0-33.0) pg MCHC 33.7 (31.0-35.0) g/dl RDW 13.1 (11.0-16.0) % Plt Count 233 (160-400) X10*3/uL MPV 10.1 (9.4-12.3) fL Immature Gran % (Auto) 0.3 (0.0-0.4) % Neut % (Auto) 60.8 (45-73) % Lymph % (Auto) 25.6 (20-40) % Edmunds % (Auto) 11.4 H (2-11) % Eos % (Auto) 1.5 (0-4) % Baso % (Auto) 0.4 (0-2) % Lymph # (Auto) 1.7 (1.2-4.9) X10*3/uL Edmunds # (Auto) 0.8 (0.1-1.2) X10*3/uL Eos # (Auto) 0.1 (0.0-0.4) X10*3/uL Baso # (Auto) 0.0 (0.0-0.2) X10*3/uL Abs Immat Gran (auto) 0.02 (0.00-0.03) X10*3/uL Absolute Neuts (auto) 4.1 (2.0-8.3) x10*3/uL Absolute Nucleated RBC 0.000 (0.0-0.012) X10*3/uL Nucleated RBC % (auto) 0.0 (0.0-0.2) /100WBC PT 11.4 (11.1-13.3) SEC INR 0.9 (0.9-1.1) Sodium 141 (135-145) mmol/L Potassium 3.8 (3.3-5.1) mmol/L Chloride 107 (96-108) mmol/L Carbon Dioxide 28 (22-29) mmol/L Anion Gap 10 L (12-20) BUN 17 H (9-16) mg/dL Creatinine 0.91 (0.5-1.4) mg/dL Estim Creat Clear Calc 82.7 Estimated GFR > 60 Random Glucose 100 (60-115) mg/dL Calcium 9.7 D (8.4-10.2) mg/dL Total Bilirubin 0.4 (0.0-1.0) mg/dL AST 22 (5-31) U/L ALT 16 (0-31) U/L Alkaline Phosphatase 67 (39-117) U/L Total Protein 7.7 (6.5-8.0) g/dL Albumin 4.5 (3.5-5.0) g/dL Independent Interpretation I performed an independent interpretation of an: EKG (normal sinus rhythm) and CT Scan (Normal CTA chest abdomen Normal CT brain no C-spine fracture.) Radiology Impression Discussion of test interpretation with radiology: I have reviewed the radiologist's reading. External Record Review External record reviewed: Outpatient record Prescription Management I considered prescription management with: Pain Medication Chronic Conditions Patient?s care impacted by: Hypertension Discharge Plan Discharge Clinical Impression: Migraine Patient Disposition: Home, Self-Care Instructions: Migraine Headache (ED) Additional Instructions: Your seen in emergency room for elevated blood pressure, headache, chest pain. Your lab work was unremarkable. You had a mild allergic reaction likely to Reglan that resolved after steroids and Benadryl. Imaging was unremarkable. Follow-up with your primary care physician a few days. The symptoms return including severe chest pain, severe headache shortness of breath return to the emergency room for evaluation. Prescriptions: No Action cholecalciferol (vitamin D3) 1,250 mcg (50,000 unit) capsule 1,250 mcg PO QWEEK Qty: 4 1RF thiamine HCl (vitamin B1) 100 mg tablet 100 mg PO DAILY Qty: 30 0RF ipratropium-albuterol 0.5 mg-3 mg(2.5 mg base)/3 mL solution for nebulization 3 ml inhalation Q4-6H PRN (Reason: wheezing) 30 Days Qty: 180 6RF fluticasone propion-salmeterol [Wixela Inhub] 500-50 mcg/dose blister with device 1 inh inhalation BID 30 Days Qty: 1 6RF Xolair 150 mg recon soln 300 mg subcut Q2W 28 Days Qty: 4 12RF Rx Instructions: requires multiple injection sites; do not exceed 150 mg per injection site montelukast [Singulair] 10 mg tablet 10 mg PO BEDTIME Qty: 30 0RF diazepam [Valium] 5 mg tablet 5 mg PO TID PRN (Reason: muscle spasm) Qty: 15 0RF tramadol 50 mg tablet 50 mg PO Q6H PRN (Reason: pain) Qty: 20 0RF acetaminophen 500 mg capsule 500 mg PO QID PRN (Reason: pain) Qty: 20 0RF benzonatate 100 mg capsule 100 mg PO TID PRN (Reason: cough) Qty: 14 0RF hydrocodone-homatropine 5-1.5 mg/5 mL (5 mL) syrup 5 ml PO Q6H PRN (Reason: cough) Qty: 60 0RF Rx Instructions: Partial Fill upon patient request. epinephrine 0.3 mg/0.3 mL auto-injector 0.3 mg IM Q10M PRN (Reason: anaphylaxis) Qty: 2 0RF Rx Instructions: for 2 doses lidocaine [Lidoderm] 5 % adhesive patch,medicated 1 patch topical DAILY MDD remove after 12 hours PRN (Reason: pain) Qty: 30 0RF Rx Instructions: leave on most painful area for up to 12 hrs cyclobenzaprine 5 mg tablet 5 mg PO Q8H PRN (Reason: pain (scale score 7-10)) 5 Days Qty: 14 0RF penicillin V potassium 500 mg tablet 500 mg PO BID 10 Days Qty: 20 0RF levothyroxine 25 mcg capsule 25 mcg PO DAILY propranolol 10 mg tablet 10 mg PO BID vitamin A 10,000 unit capsule 10,000 unit PO DAILY cholecalciferol (vitamin D3) 10 mcg (400 unit) capsule 10 mcg PO DAILY albuterol sulfate 90 mcg/actuation HFA aerosol inhaler 2 puff inhalation Q4-6H PRN (Reason: shortness of breath or wheezing) 30 Days Qty: 1 6RF
--- NOTE | 2023-03-04 17:21 | ECG_ITS ---
Test Reason : HIGH BP Blood Pressure : / mmHG Vent. Rate : 077 BPM Atrial Rate : 077 BPM P-R Int : 166 ms QRS Dur : 084 ms QT Int : 414 ms P-R-T Axes : 062 009 008 degrees QTc Int : 468 ms Normal sinus rhythm Nonspecific T wave abnormality Prolonged QT RSR' or QR pattern in V1 suggests right ventricular conduction delay Abnormal ECG When compared with ECG of 20-JUL-2022 11:11, No significant change was found Referred By: Eneida Turpin Electronically Signed By:FAWAD LEE MD
[2023-03-04 17:37] LABS: MANUAL DIFF FLAG NO
[2023-03-04 17:39] LABS: Basophils Percent Auto 0.4 % (0-2); Eosinophils Absolute Auto 0.1 X10*3/uL (0.0-0.4); Eosinophils Percent Auto 1.5 % (0-4); Hemoglobin 12.8 g/dl (12.0-16.0); Imm Gran Abs Auto 0.02 X10*3/uL (0.00-0.03); Imm Gran Pct Auto 0.3 % (0.0-0.4); Lymphocytes Absolute Auto 1.7 X10*3/uL (1.2-4.9); Lymphocytes Percent Auto 25.6 % (20-40); Mean Corpuscular HGB Conc 33.7 g/dl (31.0-35.0); Mean Corpuscular Hemoglobin 30.9 pg (27.0-33.0); Mean Corpuscular Volume 91.8 fL (80.0-98.0); Mean Platelet Volume 10.1 fL (9.4-12.3); Monocytes Absolute Auto 0.8 X10*3/uL (0.1-1.2); Monocytes Percent Auto 11.4 % (2-11); Neutrophils Absolute Auto 4.1 x10*3/uL (2.0-8.3); Neutrophils Percent Auto 60.8 % (45-73); Platelet Count 233 X10*3/uL (160-400); Red Blood Count 4.14 X10*6/uL (4.20-5.50); Red Cell Distribution Width 13.1 % (11.0-16.0); White Blood Count 6.7 X10*3/uL (4.8-10.8)
[2023-03-04 17:47] LABS: INTERNATIONAL NORM RATIO 0.9 (0.9-1.1); Prothrombin Time 11.4 SEC (11.1-13.3)
[2023-03-04 17:51] LABS: Alanine Aminotransferase 16 U/L (0-31); Albumin Level 4.5 g/dL (3.5-5.0); Alkaline Phosphatase 67 U/L (39-117); Anion Gap 10 (12-20); Aspartate Amino Transferase 22 U/L (5-31); Bilirubin Total 0.4 mg/dL (0.0-1.0); Blood Urea Nitrogen 17 mg/dL (9-16); Calcium 9.7 mg/dL (8.4-10.2); Carbon Dioxide 28 mmol/L (22-29); Chloride 107 mmol/L (96-108); Creatinine Clr Calc Pharmacy 82.7; Estimated Glomerular Filt Rate > 60; Glucose Random 100 mg/dL (60-115); Potassium 3.8 mmol/L (3.3-5.1); Sodium 141 mmol/L (135-145); Total Protein 7.7 g/dL (6.5-8.0)
[2023-03-04 18:15] VITALS: BP 167/88; PULSE 78; RESP 18; O2SAT 98
[2023-03-04] MEDS: Acetaminophen 325 MG TABLET 975 MG PO (18:19)
[2023-03-04] MEDS: 0.9 % Sodium Chloride 500 ML 999 ML IV (18:24)
[2023-03-04] MEDS: Metoclopramide HCl 10 MG/2 ML VIAL IVPUSH (18:25)
[2023-03-04] MEDS: diphenhydrAMINE HCL 50 MG/ML VIAL IVPUSH (18:27)
[2023-03-04] MEDS: predniSONE 10 MG TABLET 50 MG PO (19:00)
[2023-03-04 19:03] VITALS: BP 156/78; PULSE 75; RESP 18
--- NOTE | 2023-03-04 19:03 | PC.NURSE ---
pt became shaky and developed rash on chest after reglan admin. IV stopped immediately. PO prednisone given per order.
[2023-03-04] MEDS: LORazepam 0.5 MG TABLET PO (19:50)
[2023-03-04] MEDS: iohexoL 350 MG/ML 100 ML INFUS..BTL 85 ML IV (21:19)
[2023-03-04 22:06] VITALS: BP 152/79; PULSE 75; RESP 17; TEMP 37.1
== END 2023-03-04 22:14 | disposition home or self-care (01) ==
PROVIDERS: Registered Nurse Emergency; Emergency Provider Student in an Organized Health Care Education/Training Program; PCP Internal Medicine
DX: G43.909 Migraine, unspecified, not intractable, without status migrainosus (principal); M54.2 Cervicalgia; M79.7 Fibromyalgia; M54.50 Low back pain, unspecified; R07.89 Other chest pain; R10.2 Pelvic and perineal pain; Z79.899 Other long term (current) drug therapy
CPT/HCPCS: 36415; 70450; 71275; 72125; 74174; 80053; 85025; 85610; 93005; 96361; 96374; 96375; 99284; 99285; J1200; J2765; Q9967

== ENCOUNTER 2023-03-14 13:29 | Outpatient (REF) | payer OTHER, SELFPAY | END 2023-03-14 13:30 | disposition home or self-care (01) | LOC: HO.MDS 13:29 | PROVIDERS: Visit Provider Internal Medicine Pulmonary Disease | DX: J45.50 Severe persistent asthma, uncomplicated (principal) | CPT/HCPCS: 96372; J2357 ==

== ENCOUNTER 2023-04-06 12:57 | Outpatient (REF) | payer OTHER, SELFPAY | END 2023-04-06 12:58 | disposition home or self-care (01) | LOC: HO.MDS 12:57 | PROVIDERS: Visit Provider Internal Medicine Pulmonary Disease | DX: J45.50 Severe persistent asthma, uncomplicated (principal) | CPT/HCPCS: 96372; J2357 ==

== ENCOUNTER 2023-05-03 11:15 | Outpatient (REF) | payer OTHER, SELFPAY | END 2023-05-03 11:16 | disposition home or self-care (01) | LOC: HO.MDS 11:15 | PROVIDERS: Visit Provider Internal Medicine Pulmonary Disease | DX: J45.50 Severe persistent asthma, uncomplicated (principal) | CPT/HCPCS: 96372; J2357 ==

== ENCOUNTER 2023-05-17 11:44 | Outpatient (REF) | payer OTHER, SELFPAY | END 2023-05-17 11:45 | disposition home or self-care (01) | LOC: HO.MDS 11:44 | PROVIDERS: Visit Provider Internal Medicine Pulmonary Disease | DX: J45.50 Severe persistent asthma, uncomplicated (principal) | CPT/HCPCS: 96372; J2357 ==

== ENCOUNTER 2023-06-01 12:18 | Outpatient (REF) | payer OTHER, SELFPAY | END 2023-06-01 12:19 | disposition home or self-care (01) | LOC: HO.MDS 12:18 | PROVIDERS: Visit Provider Internal Medicine Pulmonary Disease | DX: J45.50 Severe persistent asthma, uncomplicated (principal) | CPT/HCPCS: 96372; J2357 ==

== ENCOUNTER → 2023-08-23 14:11 | Outpatient (BNVA) | payer OTHER, SELFPAY | PROVIDERS: PCP Internal Medicine; Visit Provider Internal Medicine Pulmonary Disease ==

== ENCOUNTER 2023-10-17 13:55 | Outpatient (AMB) | payer OTHER, SELFPAY ==
--- NOTE | 2023-10-17 13:55 | AM.OFFWIN_ITS ---
Intake Vital Signs 10/17/23 13:56 Height 5 ft 4 in Weight 229 lb 2 oz BMI 39.3 BP 150/90 H Blood Pressure Location Rt brachial Position Sitting Pulse 72 Pulse Source Pulse Oximeter Temp 97.9 F Temp Source Oral Pulse Oximetry (%) 98 Intake Visit Reasons: [employer] rash inside buttocks (cheeks) Intake Note: pt is here for rash inside buttocks Patient Tobacco Use Status: Never used Tobacco Allergies ibuprofen [From Motrin] Adverse Reaction (Mild, Verified 10/17/23 13:57) STOMACH UPSET prochlorperazine [From COMPAZINE] Adverse Reaction (Unknown, Verified 10/17/23 13:57) Shakiness metoclopramide [From Reglan] Adverse Reaction (Verified 10/17/23 13:57) Shakiness Do you need a note to return to daycare/school/sports/work: No HPI HPI Comments History of Present Illness Details Patient is a 53-year-old female complaining of a rash on her right buttocks x4 days. She states it is itchy, she states her has applied antibiotic cream and she even took some antibiotic pills she had lying around neither 1 of them seem to help. She states there is another pinpoint lesion on her left buttock that is starting. [facility] Medical History Asthma COVID-19 HTN (hypertension) Hypothyroid Migraine Surgical History History of appendectomy History of repair of hiatal hernia History of sleeve gastrectomy Hx of cholecystectomy Hx of tubal ligation Family History Mother No problems noted. Father Asthma Diabetes Thyroid condition Sister No problems noted. Sister Asthma Diabetes Thyroid condition Sister Asthma Diabetes Thyroid condition Cancer Brother Asthma Daughter No problems noted. Daughter Migraine Hypotension Son No problems noted. Son Asthma Kidney failure Social History Alcohol intake: current Alcohol intake frequency: a few times a month Patient Tobacco Use Status: Never used Tobacco Review of Systems Const All systems reviewed & are unremarkable except as noted in HPI and below Physical Exam Vital Signs: Last Vital Signs Temp 97.9 F 10/17/23 13:56 Pulse 72 10/17/23 13:56 BP 150/90 H 10/17/23 13:56 Pulse Ox 98 10/17/23 13:56 BMI result Body Mass Index 39.3 Const General: cooperative, healthy appearing, comfortable, no acute distress and well developed Orientation/consciousness: patient oriented x3 Limitations: no limitations Eyes General: appearance normal, both eyes and all related structures Resp Effort & Inspection: normal respiratory effort and able to speak in complete sentences Skin Other: 2cm x 1cm erythematous indurated area with pinpoint areas of purulence. One pinpoint lesion on the left buttocks filled with purulent material. Neuro General: patient oriented x3 Assessment & Plan Assessment & Plan (1) Abscess of buttock, right: Code(s): L02.31 - Cutaneous abscess of buttock Plan: Sent wound culture, prescribed doxy for 7 days. Gave patient risks and benefits of medication and advised to take with food. Plan See above Orders: Orders Routine Culture w Gram Stain Today L02.31 - Cutaneous abscess of buttock Medications: New doxycycline hyclate 100 mg PO BID 14 tabs 0RF Coding Level of Care Code New Pt Level 3 (93501) Diagnoses Abscess of buttock, right L02.31
[2023-10-17 13:56] VITALS: BP 150/90; PULSE 72; TEMP 36.6; O2SAT 98; BMI 39.3
== END 2023-10-17 14:33 | disposition home or self-care (01) ==
PROVIDERS: PCP Internal Medicine; Visit Provider Physician Assistant
DX: L02.31 Cutaneous abscess of buttock (principal)
CPT/HCPCS: 99203

== ENCOUNTER 2023-10-17 14:20 | Outpatient (REF) | payer OTHER, SELFPAY | END 2023-10-17 14:21 | disposition home or self-care (01) | LOC: HO.LAB 14:20 | PROVIDERS: Visit Provider Physician Assistant | DX: L02.31 Cutaneous abscess of buttock (principal) | CPT/HCPCS: 87070; 87205 ==

== ENCOUNTER 2023-11-28 12:05 | Outpatient (AMB) | payer OTHER, SELFPAY ==
[2023-11-28 12:12] VITALS: BP 146/80; PULSE 84; TEMP 36.9; O2SAT 98; BMI 39.5
--- NOTE | 2023-11-28 12:12 | AM.OFFWIN_ITS ---
Intake Vital Signs 11/28/23 12:12 Height 5 ft 4 in Weight 230 lb BMI 39.5 BP 146/80 H Blood Pressure Location Rt brachial Position Sitting Pulse 84 Pulse Source Pulse Oximeter Temp 98.5 F Temp Source Oral Pulse Oximetry (%) 98 Oxygen Delivery Method Room Air Intake Visit Reasons: EP- LT neck stiffness, cannot move left arm Intake Note: Pt is here today c/o Lt side of neck pain and stiffness into Lt shoulder down to Lt arm: No injury noted x2mo. Patient Tobacco Use Status: Never used Tobacco Allergies ibuprofen [From Motrin] Adverse Reaction (Mild, Verified 10/17/23 13:57) STOMACH UPSET prochlorperazine [From COMPAZINE] Adverse Reaction (Unknown, Verified 10/17/23 13:57) Shakiness metoclopramide [From Reglan] Adverse Reaction (Verified 10/17/23 13:57) Shakiness Do you need a note to return to daycare/school/sports/work: No HPI HPI Comments History of Present Illness Details Patient is a 53-year-old female complaining of shoulder stiffness and neck stiffness. She states this has been going on for many months and she did see her primary care doctor about it who gave her muscle relaxers and NSAIDs but never took an x-ray. She states she has been taking the muscle relaxers and the NSAIDs with no relief. She states she has really been unable to move the shoulder for a few months but for some reason today she woke up and it was more stiff than usual. She states she is not sure if she is in menopause because she has an IUD. She denies any fevers. She states she has been to physical therapy for it previously and that did not help at all. She states she does not have a director of event marketing or primary care doctor because they stopped taking her insurance. [facility] Medical History Asthma COVID-19 HTN (hypertension) Hypothyroid Migraine Surgical History History of appendectomy History of repair of hiatal hernia History of sleeve gastrectomy Hx of cholecystectomy Hx of tubal ligation Family History Mother No problems noted. Father Asthma Diabetes Thyroid condition Sister No problems noted. Sister Asthma Diabetes Thyroid condition Sister Asthma Diabetes Thyroid condition Cancer Brother Asthma Daughter No problems noted. Daughter Migraine Hypotension Son No problems noted. Son Asthma Kidney failure Social History Alcohol intake: current Alcohol intake frequency: a few times a month Patient Tobacco Use Status: Never used Tobacco Review of Systems Const All systems reviewed & are unremarkable except as noted in HPI and below Physical Exam Vital Signs: Last Vital Signs Temp 98.5 F 11/28/23 12:12 Pulse 84 11/28/23 12:12 BP 146/80 H 11/28/23 12:12 Pulse Ox 98 11/28/23 12:12 Oxygen Delivery Method Room Air 11/28/23 12:12 BMI result Body Mass Index 39.5 Const General: cooperative, healthy appearing, comfortable, no acute distress and well developed Orientation/consciousness: patient oriented x3 Limitations: no limitations HEENT Head: Yes normal to inspection Ears: hearing grossly normal bilaterally General nose exam: Normal external nose present Face and sinus: Yes normal facial exam Eyes General: appearance normal, both eyes and all related structures Neck Neck: Yes normal visual inspection and Yes full ROM Resp Effort & Inspection: normal respiratory effort and able to speak in complete sentences Back/Spine/Pelvis Cervical Spine: cervical muscular tenderness (left side into trap muscle), pain with cervical ROM (left side) and No Cervical spine tenderness Thoracic/Lumbar Spine: thoracic and lumbar spine normal to inspection, thoraco- lumbar ROM normal and No thoracic spinal tenderness Skin General skin exam: no rashes or lesions noted Neuro General: patient oriented x3 Extrem General: Yes normal to inspection Left upper extremity: normal to inspection, normal capillary refill, no joint enlargement, shoulder/upper arm Details: inspection abnormal and abnormal ROM Details: pain with active ROM Details: in ADduction, in ABduction, in internal rotation and external rotation- and pain with passive ROM Details: in ADduction, in ABduction, in internal rotation and external rotation-; no tenderness and elbow/forearm Details: normal to inspection and normal ROM Assessment & Plan Assessment & Plan (1) Limited range of motion (ROM) of shoulder: Code(s): M25.619 - Stiffness of unspecified shoulder, not elsewhere classified Plan: X-ray negative for acute issue. Likely frozen shoulder secondary to menopause. Recommended patient follow up with her director of event marketing, she can also going to [facility] website and get exercises for frozen shoulder/adhesive capsulitis. Recommended she establish care with a new physician soon as possible. Also gave patient left arm splint to rest it Plan See above Orders: Orders XR shoulder LT min 2V Today M25.619 - Stiffness of unspecified shoulder, not elsewhere classified Coding Level of Care Code New Pt Level 4 (83973) Diagnoses Limited range of motion (ROM) of shoulder M25.619
== END 2023-11-28 13:00 | disposition home or self-care (01) ==
PROVIDERS: PCP Internal Medicine; Visit Provider Physician Assistant
DX: M25.612 Stiffness of left shoulder, not elsewhere classified (principal)
CPT/HCPCS: 99214

== ENCOUNTER 2023-11-28 12:32 | Outpatient (REF) | payer OTHER, SELFPAY ==
--- NOTE | ~2023-11-28 | XR_ITS ---
EXAMINATION: XR SHOULDER, LEFT CLINICAL INFORMATION: Stiffness of shoulder. COMPARISON: 04/29/2022 TECHNIQUE: Three views of the left shoulder. FINDINGS: Bones have normal alignment. No fracture or subluxation. Minimal osteophyte formation at the acromioclavicular joint. Humeral head is well-positioned over the intact glenoid and glenohumeral joint space is maintained. No evidence of calcium deposition within rotator cuff tendons. XR/XR shoulder LT min 2V IMPRESSION: * No evidence of fracture or malalignment at the left shoulder. * Mild osteoarthrosis of the left acromioclavicular joint. * No evidence of calcific tendinopathy.
== END 2023-11-28 12:33 | disposition home or self-care (01) ==
LOC: HO.HMGCX 12:32
PROVIDERS: PCP Internal Medicine; Visit Provider Physician Assistant
DX: M25.612 Stiffness of left shoulder, not elsewhere classified (principal)
CPT/HCPCS: 73030

== ENCOUNTER 2024-02-15 11:22 | Outpatient (AMB) | payer MEDICAID, SELFPAY ==
--- NOTE | 2024-02-15 11:31 | MHC.OFFVIS ---
Vital Signs 02/15/24 11:33 Height 5 ft 4 in Weight 236 lb 15.951 oz BMI 40.7 BP 127/78 Blood Pressure Location Rt brachial Position Sitting Pulse 81 Pulse Source Doppler Pulse Oximetry (%) 98 Intake Visit Reasons: asthma Allergies ibuprofen [From Motrin] Adverse Reaction (Mild, Verified 02/15/24 11:36) STOMACH UPSET prochlorperazine [From COMPAZINE] Adverse Reaction (Unknown, Verified 02/15/24 11:36) Shakiness metoclopramide [From Reglan] Adverse Reaction (Verified 02/15/24 11:36) Shakiness HPI HPI asthma: Details: 52-year-old lady, nonsmoker, followed for severe persistent asthma and environmental allergies. Patient has previously been using Xolair, Wixela, and albuterol MDI with good control of her symptoms. However, recently after changes in her insurance she was no longer able to use Xolair in her symptom control worsened. Patient recently had in other change in her insurance and she wants to try using Xolair again. She does complain of mild acute exacerbation symptomatic with increased cough and wheezing. [facility] Medical History Asthma COVID-19 HTN (hypertension) Hypothyroid Migraine Surgical History History of appendectomy History of repair of hiatal hernia History of sleeve gastrectomy Hx of cholecystectomy Hx of tubal ligation Family History Mother No problems noted. Father Asthma Diabetes Thyroid condition Sister No problems noted. Sister Asthma Diabetes Thyroid condition Sister Asthma Diabetes Thyroid condition Cancer Brother Asthma Daughter No problems noted. Daughter Migraine Hypotension Son No problems noted. Son Asthma Kidney failure Social History Alcohol intake: current Alcohol intake frequency: a few times a month Patient Tobacco Use Status: Never used Tobacco Review of Systems Const Denies daytime sleepiness, Denies excessive sweating, Denies fatigue, Denies fever(s), Denies lethargy, Denies malaise, Denies night sweats, Denies snoring and Denies weight loss Eyes Denies blurry vision and Denies itchy eyes ENT Denies nasal congestion, Denies post nasal drip, Denies sinus pain, Denies sinus pressure and Denies other ( Thrush) Card Denies chest pain, Denies pedal edema, Denies dyspnea, Denies orthopnea and Denies paroxysmal nocturnal dyspnea Resp Reports cough, Denies hemoptysis, Denies excessive phlegm production, Denies dyspnea, Denies snoring and Reports wheezing GI Denies abdominal pain and Denies heartburn Musc Denies myalgias, Denies arthralgias and Denies joint swelling Skin/Breast Denies rash Neuro Denies memory loss and Denies seizure-like activity Psych Denies abnormal sleep pattern, Denies anxiety and Denies memory loss Endo Denies excessive sweating, Denies fatigue and Denies heat intolerance Brian/Lymph Denies easy bruising Aller/Immun Denies itchy eyes, Denies seasonal rhinorrhea and Reports wheezing Physical Exam Vital Signs: Last Vital Signs Pulse 81 02/15/24 11:33 BP 127/78 02/15/24 11:33 Pulse Ox 98 02/15/24 11:33 BMI result Body Mass Index 40.7 Const General: no acute distress and alert Nutritional Appearance: obese Orientation/consciousness: Other orientation findings ( oriented) HEENT Head: Yes atraumatic Eyes General: appearance normal, both eyes and all related structures Sclerae: sclerae normal EOM: EOMs intact bilaterally Neck Neck: Yes supple Lymphatic: no lymphadenopathy noted Resp Effort & Inspection: normal respiratory effort and no use of accessory muscles Auscultation: clear to auscultation bilaterally Cardio Rate: regular rate Rhythm: regular rhythm Heart sounds: no gallops, no murmurs and no rubs Skin General skin exam: other ( warm) Extrem General: No clubbing, No cyanosis and No edema Assessment & Plan Assessment & Plan (1) Severe persistent allergic asthma: Code(s): J45.50 - Severe persistent asthma, uncomplicated Category: Medical Plan: Worsening control off Xolair. Will request restart Xolair. Continue Wixela, duo nebs, Singulair, and albuterol MDI. Now also with mild exacerbation, will treat with a course of prednisone. (2) Environmental allergies: Code(s): Z91.09 - Other allergy status, other than to drugs and biological substances Category: Medical Plan: Expect to improve after restarting Xolair. Medications: New prednisone 40 mg (2 x 20 mg) PO DAILY 10 tabs 0RF Coding Level of Care Code Est Pt Level 4 (55126) Complex EM visit Add On G2211 Diagnoses Severe persistent allergic asthma J45.50 Environmental allergies Z91.09
[2024-02-15 11:33] VITALS: BP 127/78; PULSE 81; O2SAT 98; BMI 40.7
== END 2024-02-15 11:49 | disposition home or self-care (01) ==
LOC: HO.HPS 11:22
PROVIDERS: PCP Internal Medicine; Visit Provider Internal Medicine Pulmonary Disease
DX: J45.50 Severe persistent asthma, uncomplicated (principal); Z91.09 Other allergy status, other than to drugs and biological substances
CPT/HCPCS: 99214

== ENCOUNTER → 2024-02-15 11:22 | Outpatient (BNVA) | payer MEDICAID, SELFPAY | PROVIDERS: PCP Internal Medicine; Visit Provider Internal Medicine Pulmonary Disease | DX: J45.50 Severe persistent asthma, uncomplicated (principal); Z91.09 Other allergy status, other than to drugs and biological substances | CPT/HCPCS: 99212 ==

== ENCOUNTER 2024-09-15 20:06 | Emergency (ER) | payer OTHER, SELFPAY ==
--- NOTE | ~2024-09-15 | US_ITS ---
CLINICAL HISTORY: LE pain and pitting edema Venous duplex ultrasound bilateral lower extremity Comparison: None Findings: The visualized deep veins are fully compressible with normal Doppler color flow and spectral tracings. No popliteal cyst. Bilateral ankle subcutaneous edema. IMPRESSION: 1. Negative for bilateral lower extremity deep vein thrombosis. This document has been electronically signed by: Michell Ascencio MD on 09/15/2024 23:03:30
--- NOTE | ~2024-09-15 | XR_ITS ---
CLINICAL HISTORY: sob, LE edema 2 view chest x-ray Comparison: None Findings: Mild pulmonary vascular congestion. No consolidation, pleural effusion or pneumothorax. Normal size heart. No acute fracture. IMPRESSION: 1. Mild pulmonary vascular congestion. This document has been electronically signed by: Michell Ascencio MD on 09/15/2024 21:08:52
[2024-09-15 20:08] VITALS: BP 118/94; PULSE 93; RESP 18; TEMP 36.3; O2SAT 98; BMI 42.2
--- NOTE | 2024-09-15 20:09 | ED_ITS ---
HPI - Extremity Injury (Lower) General Chief Complaint: Extremity Problem Stated Complaint: jasmeet leg swelling/pain Time Seen by Provider: 09/16/24 01:15 Source: patient Mode of arrival: ambulatory Limitations: no limitations History of Present Illness ED Provider: HPI Narrative: Patient with no significant cardiac history comes for liver disease, increased leg swelling for last 1 week got worse in last 3 days denies any significant shortness a breath no difficulty in urination no fever no chills no history of DVT Related Data Home Medications ?Medication ?Instructions ?Recorded ?Confirmed cholecalciferol (vitamin D3) 10 10 mcg PO DAILY 08/12/20 09/01/20 mcg (400 unit) capsule duloxetine 30 mg capsule,delayed 30 mg PO DAILY 10/17/23 release propranolol 40 mg tablet 80 mg PO BID 10/17/23 levothyroxine 25 mcg capsule 112 mcg PO DAILY 11/28/23 Previous Rx's ?Medication ?Instructions ?Recorded montelukast 10 mg tablet 10 mg PO BEDTIME #30 tabs 07/13/20 (Singulair) albuterol sulfate 90 mcg/actuation 2 puff inhalation Q4-6H PRN 07/15/20 aerosol inhaler shortness of breath or wheezing 30 days #1 ea epinephrine 0.3 mg/0.3 mL 0.3 mg (0.3 mL) IM Q10M PRN 01/22/21 injection, auto-injector anaphylaxis #2 ea fluticasone 500 mcg-salmeterol 50 1 inh inhalation BID 30 days #1 ea 02/18/21 mcg/dose blistr powdr for inhalation (Wixela Inhub) ipratropium 0.5 mg-albuterol 3 mg 3 ml inhalation Q4-6H PRN wheezing 02/18/21 (2.5 mg base)/3 mL nebulization 30 days #180 mL soln acetaminophen 500 mg capsule 500 mg PO QID PRN pain #20 caps 10/15/21 prednisone 20 mg tablet 40 mg (2 x 20 mg) PO DAILY #10 tabs 02/15/24 hydrochlorothiazide 25 mg tablet 25 mg PO QAM #30 tabs 09/16/24 Allergies Allergy/AdvReac Type Severity Reaction Status Date / Time ibuprofen [From Motrin] AdvReac Mild STOMACH Verified 09/15/24 20:12 UPSET prochlorperazine AdvReac Unknown Shakiness Verified 09/15/24 20:12 [From COMPAZINE] metoclopramide [From Reglan] AdvReac Shakiness Verified 09/15/24 20:12 Review of Systems 2 Review of Systems: Yes all other systems are reviewed and are negative [facility] Past Medical History Medical History COVID-19 Migraine HTN (hypertension) Hypothyroid Asthma Surgical History History of repair of hiatal hernia Hx of tubal ligation Hx of cholecystectomy History of appendectomy History of sleeve gastrectomy Family History Family History Mother No problems noted. Father Asthma Diabetes Thyroid condition Sister No problems noted. Sister Asthma Diabetes Thyroid condition Sister Asthma Diabetes Thyroid condition Cancer Brother Asthma Daughter No problems noted. Daughter Migraine Hypotension Son No problems noted. Son Asthma Kidney failure Social History Social History Alcohol intake: current Alcohol intake frequency: 0-2 drinks per day Patient Tobacco Use Status: Never used Tobacco Smoked in Last 30 Days: No Use of substances other than those prescribed or required for medical reasons: No Advance Directives: No Advance Directives Information Provided: No Do you have a plan to hurt others: No Plan Physical Exam 2 Vital Signs: Vital Signs: Last Vital Signs Temp 97.5 F 09/16/24 02:37 Pulse 76 09/16/24 02:37 Resp 16 09/16/24 02:37 BP 120/66 09/16/24 02:37 Pulse Ox 98 09/16/24 02:37 O2 Del Method Room Air 09/16/24 02:37 BMI result Body Mass Index 42.2 Appearance: Alert. Oriented X3. No acute distress. Eyes: No pallor or icterus ENT: Pharynx normal. Oral Mucosa moist Neck: Normal inspection. Neck supple. CVS: Normal heart rate and rhythm. Pulses normal. Respiratory: No respiratory distress. Equal air entry bilateral, no wheezing/rales/rhonchi Abdomen: Soft and nontender. Bowel sounds are present, no mass palpable, no CVA tenderness Skin: Skin warm and dry. Normal skin color. Normal skin turgor. Extremities: 2+ lower extremity edema. No calf tenderness Neuro: Oriented X 3. No motor deficit. No sensory deficit.No cerebellar signs , cranial nerves II-XII intact Course Course Course Narrative: This is a Rapid Medical Exam performed in triage by Marcia Serra PA-C. Full HPI, ROS and PE to be performed by primary ED provider. 54 yo F w/PMHx asthma presenting to the ED c/o bilateral LE swelling / pain & L knee pain x3 days. Admits to SOB earlier today, denies at present. Denies injury/fall, blood clots, travel, smoking or OCPs PE: +L knee swelling, +b/l LE pitting edema. NV intact distally Plan: Labs, CXR, US Medical Decision Making Medical Decision Making MDM Narrative: Patient's dependent leg edema no signs of heart failure venous Doppler negative for DVT patient is prescribed hydrochlorothiazide daily and keep the legs elevated Differential Diagnosis Differential Diagnoses: The differential diagnosis associated with the presentation includes CHF/hepatic failure/dependent edema Lab Data [facility] Lab Attestation statement: I reviewed the patient's lab results. 09/15/24 20:53 09/15/24 20:53 Labs: Lab Results 09/15/24 Range/Units 20:53 WBC 5.7 (4.8-10.8) X10*3/uL RBC 3.61 L (4.20-5.50) X10*6/uL Hgb 11.4 L (12.0-16.0) g/dl Hct 33.4 L (37.0-47.0) % MCV 92.5 (80.0-98.0) fL MCH 31.6 (27.0-33.0) pg MCHC 34.1 (31.0-35.0) g/dl RDW 13.4 (11.0-16.0) % Plt Count 197 (160-400) X10*3/uL MPV 10.5 (9.4-12.3) fL Immature Gran % (Auto) 0.3 (0.0-0.4) % Neut % (Auto) 55.3 (45-73) % Lymph % (Auto) 28.4 (20-40) % Bureau % (Auto) 11.3 H (2-11) % Eos % (Auto) 4.0 (0-4) % Baso % (Auto) 0.7 (0-2) % Lymph # (Auto) 1.6 (1.2-4.9) X10*3/uL Bureau # (Auto) 0.7 (0.1-1.2) X10*3/uL Eos # (Auto) 0.2 (0.0-0.4) X10*3/uL Baso # (Auto) 0.0 (0.0-0.2) X10*3/uL Abs Immat Gran (auto) 0.02 (0.00-0.03) X10*3/uL Absolute Neuts (auto) 3.2 (2.0-8.3) x10*3/uL Absolute Nucleated RBC 0.000 (0.0-0.012) X10*3/uL Nucleated RBC % (auto) 0.0 (0.0-0.2) /100WBC PT 11.2 (10.9-12.4) SEC INR 1.0 (0.9-1.1) Sodium 139 (135-145) mmol/L Potassium 3.9 (3.3-5.1) mmol/L Chloride 105 (96-108) mmol/L Carbon Dioxide 27 (22-29) mmol/L Anion Gap 11 L (12-20) BUN 19 H (9-16) mg/dL Creatinine 0.79 (0.5-1.4) mg/dL Estim Creat Clear Calc 97.2 Estimated GFR > 60 Random Glucose 127 H (60-115) mg/dL Calcium 9.2 (8.4-10.2) mg/dL Magnesium 1.9 (1.6-2.6) mg/dL Total Bilirubin 0.4 (0.0-1.0) mg/dL Direct Bilirubin 0.1 (0.0-0.5) mg/dL AST 26 (5-31) U/L ALT 29 (0-31) U/L Alkaline Phosphatase 68 (39-117) U/L B-Natriuretic Peptide 27 (<100) pg/mL Total Protein 7.0 (6.5-8.0) g/dL Albumin 4.2 (3.5-5.0) g/dL Discharge Plan Discharge Clinical Impression: Lower extremity edema Patient Disposition: Home, Self-Care Instructions: Leg Edema (ED) Additional Instructions: You have dependent leg edema avoid standing for long hours Keep your leg elevated Start taking water pill daily as advised increased leg swelling and follow up with your PCP Prescriptions: New hydrochlorothiazide 25 mg tablet 25 mg PO QAM Qty: 30 0RF No Action ipratropium-albuterol 0.5 mg-3 mg(2.5 mg base)/3 mL solution for nebulization 3 ml inhalation Q4-6H PRN (Reason: wheezing) 30 Days Qty: 180 6RF fluticasone propion-salmeterol [Wixela Inhub] 500-50 mcg/dose blister with device 1 inh inhalation BID 30 Days Qty: 1 6RF montelukast [Singulair] 10 mg tablet 10 mg PO BEDTIME Qty: 30 0RF acetaminophen 500 mg capsule 500 mg PO QID PRN (Reason: pain) Qty: 20 0RF epinephrine 0.3 mg/0.3 mL auto-injector 0.3 mg IM Q10M PRN (Reason: anaphylaxis) Qty: 2 0RF Rx Instructions: for 2 doses propranolol 40 mg tablet 80 mg PO BID duloxetine 30 mg capsule,delayed release(DR/EC) 30 mg PO DAILY levothyroxine 25 mcg capsule 112 mcg PO DAILY cholecalciferol (vitamin D3) 10 mcg (400 unit) capsule 10 mcg PO DAILY albuterol sulfate 90 mcg/actuation HFA aerosol inhaler 2 puff inhalation Q4-6H PRN (Reason: shortness of breath or wheezing) 30 Days Qty: 1 6RF prednisone 20 mg tablet 40 mg PO DAILY Qty: 10 0RF Interventions: ED Discharge Assessment Last Done: 09/16/24 02:37 Discharge Date/Time: 09/16/24 02:38 Print Language: Thai
[2024-09-15 20:57] LABS: MANUAL DIFF FLAG NO
[2024-09-15 21:00] LABS: Basophils Percent Auto 0.7 % (0-2); Eosinophils Absolute Auto 0.2 X10*3/uL (0.0-0.4); Hematocrit 33.4 % (37.0-47.0); Hemoglobin 11.4 g/dl (12.0-16.0); Imm Gran Abs Auto 0.02 X10*3/uL (0.00-0.03); Imm Gran Pct Auto 0.3 % (0.0-0.4); Lymphocytes Absolute Auto 1.6 X10*3/uL (1.2-4.9); Lymphocytes Percent Auto 28.4 % (20-40); Mean Corpuscular HGB Conc 34.1 g/dl (31.0-35.0); Mean Corpuscular Hemoglobin 31.6 pg (27.0-33.0); Mean Corpuscular Volume 92.5 fL (80.0-98.0); Mean Platelet Volume 10.5 fL (9.4-12.3); Monocytes Absolute Auto 0.7 X10*3/uL (0.1-1.2); Monocytes Percent Auto 11.3 % (2-11); Neutrophils Absolute Auto 3.2 x10*3/uL (2.0-8.3); Neutrophils Percent Auto 55.3 % (45-73); Platelet Count 197 X10*3/uL (160-400); Red Blood Count 3.61 X10*6/uL (4.20-5.50); Red Cell Distribution Width 13.4 % (11.0-16.0); White Blood Count 5.7 X10*3/uL (4.8-10.8)
[2024-09-15 21:05] LABS: Prothrombin Time 11.2 SEC (10.9-12.4)
[2024-09-15 21:20] LABS: Alanine Aminotransferase 29 U/L (0-31); Albumin Level 4.2 g/dL (3.5-5.0); Alkaline Phosphatase 68 U/L (39-117); Anion Gap 11 (12-20); Aspartate Amino Transferase 26 U/L (5-31); Bilirubin Direct 0.1 mg/dL (0.0-0.5); Bilirubin Total 0.4 mg/dL (0.0-1.0); Blood Urea Nitrogen 19 mg/dL (9-16); Calcium 9.2 mg/dL (8.4-10.2); Carbon Dioxide 27 mmol/L (22-29); Chloride 105 mmol/L (96-108); Creatinine Clr Calc Pharmacy 97.2; Estimated Glomerular Filt Rate > 60; Glucose Random 127 mg/dL (60-115); Magnesium 1.9 mg/dL (1.6-2.6); Potassium 3.9 mmol/L (3.3-5.1); Sodium 139 mmol/L (135-145)
[2024-09-15 21:26] LABS: B Type Natriuretic Peptide 27 pg/mL (<100)
[2024-09-15 23:23] VITALS: BP 138/74; PULSE 78; RESP 16; TEMP 36.4; O2SAT 98
--- NOTE | 2024-09-16 00:53 | PC.NURSE ---
pt destat to 77% while sleeping, hx LAMBERT. placed on 2L NC
[2024-09-16 02:37] VITALS: BP 120/66; PULSE 76; RESP 16; TEMP 36.4; O2SAT 98
== END 2024-09-16 02:38 | disposition home or self-care (01) ==
PROVIDERS: Physician Assistant; Emergency Provider Internal Medicine; PCP Internal Medicine
DX: R60.0 Localized edema (principal); M79.605 Pain in left leg; M79.604 Pain in right leg; R06.02 Shortness of breath; I10 Essential (primary) hypertension; J45.909 Unspecified asthma, uncomplicated; E03.9 Hypothyroidism, unspecified; Z79.899 Other long term (current) drug therapy
CPT/HCPCS: 36415; 71046; 80048; 80076; 83735; 83880; 85025; 85610; 93970; 99284

== ENCOUNTER → 2024-09-15 20:12 | Outpatient (BNV) | payer OTHER, SELFPAY | PROVIDERS: Visit Provider Radiology Diagnostic Radiology | DX: R06.02 Shortness of breath (principal) | CPT/HCPCS: 71046; 93970 ==